=== PATIENT | female | born 1995 | race Caucasian/White ===

== ENCOUNTER → 2016-09-12 | Outpatient (CLI) | payer OTHER ==
[~2016-09-12] VITALS: Ht 160 cm; Wt 115.2 kg
[~2016-09-12] MED LIST: NS (IVPB) 50 ML ONE; NS IV 1000 ML 2,000 ML ONE; cefTRIAXone 1 GM (ROCEPHIN) VIAL ONE; cefTRIAXone 1 GM/NS 50 ML IVPB IV ONE
[2016-09-12 10:51] LABS: MEAN PLATELET VOLUME 9.6 FL (7.4-10.4); RED BLOOD COUNT 4.95 10^6/uL (4.35-5.85); WHITE BLOOD COUNT 6.7 10^3/uL (4.3-11.0)
[2016-09-12 11:10] VITALS: BP 142/85
[2016-09-12] MEDS: NS IV 1000 ML 1,000 ML IV SCH ×2 (11:10→12:10)
[2016-09-12 11:12] LABS: ALANINE AMINOTRANSFERASE 139 U/L (0-55); ALBUMIN 3.9 GM/DL (3.2-4.5); ANION GAP 10 MMOL/L (5-14); ASPARTATE AMINO TRANSFERASE 96 U/L (5-34); BILIRUBIN,TOTAL 1.1 MG/DL (0.1-1.0); BLOOD UREA NITROGEN 7 MG/DL (7-18); BUN/CREATININE RATIO 9; CALCIUM 8.9 MG/DL (8.5-10.1); CARBON DIOXIDE 21 MMOL/L (21-32); CHLORIDE 106 MMOL/L (98-107); GFR ESTIMATED > 60; GLUCOSE 110 MG/DL (70-105); HEMOLYSIS 4 (-100-29); ICTERUS 0.9 (-100-1.9); LIPEMIA -3 (-100-49); POTASSIUM 3.9 MMOL/L (3.6-5.0); SODIUM 137 MMOL/L (135-145)
--- NOTE | 2016-09-12 11:22 | Diagnostic Imaging Report ---
PA and lateral views of the chest Indication: Cough and fever Findings: The lungs are clear. The heart size is normal. There is no effusion or pneumothorax The mediastinum and ashok appear unremarkable. Impression: Unremarkable study. Dictated by: Dictated on workstation # [id number]
[2016-09-12 13:15] VITALS: BP 142/85
[2016-09-12 15:23] LABS: BASOPHILS # (AUTO) 0.2 10^3/uL (0.0-0.1); BASOPHILS % (AUTO) 3 % (0-10); EOSINOPHILS # (AUTO) 0.1 10^3/uL (0.0-0.3); EOSINOPHILS % (AUTO) 1 % (0-10); LYMPHOCYTES # (AUTO) 2.5 X 10^3 (1.0-4.0); LYMPHOCYTES % (AUTO) 36 % (12-44); MEAN CORPUSCULAR HEMOGLOBIN 31 PG (25-34); MEAN CORPUSCULAR HGB CONC 35 G/DL (32-36); MEAN CORPUSCULAR VOLUME 87 FL (80-99); MEAN PLATELET VOLUME 10.3 FL (7.4-10.4); MONOCYTES % (AUTO) 14 % (0-12); NEUTROPHILS # (AUTO) 3.1 X 10^3 (1.8-7.8); NEUTROPHILS % (AUTO) 46 % (42-75); PLATELET COUNT 203 10^3/uL (130-400); RED BLOOD COUNT 4.86 10^6/uL (4.35-5.85); RED CELL DISTRIBUTION WIDTH 13.1 % (10.0-14.5); WHITE BLOOD COUNT 6.9 10^3/uL (4.3-11.0)
[2016-09-12 15:39] LABS: BAND NEUTROPHILS 11 %; BASOPHILS % (MANUAL) 2 %; EOSINOPHILS % (MANUAL) 3 %; LYMPHOCYTES % (MANUAL) 26 %; NEUTROPHILS % (MANUAL) 41 %; REACTIVE LYMPHOCYTES 12 %
== END ==
LOC: SDC 10:14
PROVIDERS: ATTEND Nurse Practitioner Family
DX: E86.0 Dehydration (principal); R05 Cough; R00.0 Tachycardia, unspecified; R74.8 Abnormal levels of other serum enzymes
CPT/HCPCS: 36415; 71020; 80053; 85007; 85027; 86308; 96360; 96365

== ENCOUNTER 2016-09-15 18:28 | Inpatient (IN) | payer OTHER ==
[~2016-09-15] VITALS: Ht 160 cm; Wt 104.3 kg
--- OUTSIDE RECORDS SUMMARY | 2016-09-15 18:32 | XMS REPORT | Continuity of Care Document ---
Author Author [facility] Organization [facility] Address Unknown Phone Unavailable Allergies Medications Problems Procedures Results Test Result Range Automated blood complete blood count (hemogram) panel - 09/12/16 10:35 Blood leukocytes automated count (number/volume) 6.7 10*3/ uL 4.3-11.0 Blood erythrocytes automated count (number/volume) 4.95 10*6 /uL 4.35-5.85 Venous blood hemoglobin measurement (mass/volume) 15.1 g/dL 11.5-16.0 Blood hematocrit (volume fraction) 43 % 35-52 Automated erythrocyte mean corpuscular volume 86 [foz_us] 80-99 Automated erythrocyte mean corpuscular hemoglobin (mass per erythrocyte) 31 pg 25-34 Automated erythrocyte mean corpuscular hemoglobin concentration measurement ( mass/volume) 35 g/dL 32-36 Automated erythrocyte distribution width ratio 13.0 % 10.0-14.5 Automated blood platelet count (count/volume) 200 10*3/uL 130-400 Automated blood platelet mean volume measurement 9.6 [foz_us ] 7.4-10.4 Comprehensive metabolic panel - 09/12/16 10:35 Serum or plasma sodium measurement (moles/volume) 137 mmol/ L 135-145 Serum or plasma potassium measurement (moles/volume) 3.9 mmol/L 3.6-5.0 Serum or plasma chloride measurement (moles/volume) 106 mmol /L 98-107 Carbon dioxide 21 mmol/L 21-32 Serum or plasma anion gap determination (moles/volume) 10 mmol/L 5-14 Serum or plasma urea nitrogen measurement (mass/volume) 7 mg /dL 7-18 Serum or plasma creatinine measurement (mass/volume) 0.80 mg /dL 0.60-1.30 Serum or plasma urea nitrogen/creatinine mass ratio 9 NRG Serum or plasma creatinine measurement with calculation of estimated glomerular filtration rate > NRG Serum or plasma glucose measurement (mass/volume) 110 mg/dL 70-105 Serum or plasma calcium measurement (mass/volume) 8.9 mg/dL 8.5-10.1 Serum or plasma total bilirubin measurement (mass/volume) 1.1 mg/dL 0.1-1.0 Serum or plasma alkaline phosphatase measurement (enzymatic activity/volume) 145 U/L 40-136 Serum or plasma aspartate aminotransferase measurement (enzymatic activity/ volume) 96 U/L 5-34 Serum or plasma alanine aminotransferase measurement (enzymatic activity/volume ) 139 U/L 0-55 Serum or plasma protein measurement (mass/volume) 7.0 g/dL 6.4-8.2 Serum or plasma albumin measurement (mass/volume) 3.9 g/dL 3.2-4.5 Complete blood count (CBC) with automated white blood cell (WBC) differential - 09/12/16 10:35 Blood leukocytes automated count (number/volume) 6.9 10*3/ uL 4.3-11.0 Blood erythrocytes automated count (number/volume) 4.86 10*6 /uL 4.35-5.85 Venous blood hemoglobin measurement (mass/volume) 14.9 g/dL 11.5-16.0 Blood hematocrit (volume fraction) 42 % 35-52 Automated erythrocyte mean corpuscular volume 87 [foz_us] 80-99 Automated erythrocyte mean corpuscular hemoglobin (mass per erythrocyte) 31 pg 25-34 Automated erythrocyte mean corpuscular hemoglobin concentration measurement ( mass/volume) 35 g/dL 32-36 Automated erythrocyte distribution width ratio 13.1 % 10.0-14.5 Automated blood platelet count (count/volume) 203 10*3/uL 130-400 Automated blood platelet mean volume measurement 10.3 [foz_ us] 7.4-10.4 Automated blood neutrophils/100 leukocytes 46 % 42-75 Automated blood lymphocytes/100 leukocytes 36 % 12-44 Blood monocytes/100 leukocytes 14 % 0-12 Automated blood eosinophils/100 leukocytes 1 % 0-10 Automated blood basophils/100 leukocytes 3 % 0-10 Blood neutrophils automated count (number/volume) 3.1 10*3 1.8-7.8 Blood lymphocytes automated count (number/volume) 2.5 10*3 1.0-4.0 Blood monocytes automated count (number/volume) 1.0 10*3 0.0-1.0 Automated eosinophil count 0.1 10*3/uL 0.0-0.3 Automated blood basophil count (count/volume) 0.2 10*3/uL 0.0-0.1 Serum heterophile antibody titer - 09/12/16 10:35 Serum heterophile antibody titer NEGATIVE NEGATIVE Blood manual differential performed detection - 09/12/16 10:35 Blood monocytes/100 leukocytes 5 % NRG Manual blood segmented neutrophils/100 leukocytes 41 % NRG Blood band neutrophils/100 leukocytes 11 % NRG Manual blood lymphocytes/100 leukocytes 26 % NRG Manual eosinophils/100 leukocytes in nose 3 % NRG Manual blood basophils/100 leukocytes 2 % NRG Blood lymphocytes variant/100 leukocytes 12 % NRG Blood erythrocyte morphology finding identification NORMAL NRG Encounters ACCT No. Visit Date/Time Discharge Status Pt. Type Provider Facility Loc./Unit Complaint [id number] 11/22/2012 08:22:00 2012 23:59:59 CLS Outpatient [id number] 10/23/2012 11:56:00 2012 23:59:59 CLS Outpatient [id number] 09/12/2016 10:51:00 Document Registration
--- NOTE | 2016-09-15 18:50 | ED General ---
General Stated Complaint: YELLOWED EYES/HIGH HEART RATE/BACK PAIN Source of Information: Patient Exam Limitations: No Limitations History of Present Illness Time Seen by Provider: 18:47 Initial Comments To ER with reports of yellowish eyes, tachycardia, mid back pain. She's also had nausea and vomiting for the past few days. This began about a week ago with diffuse body aches, generally feeling poorly, nausea. No fevers or chills. No specific pain She saw Dr. Sahu[facility] who referred her to the hospital for outpatient labs and IV fluids. She was told that her liver enzymes were slightly elevated. She went home and felt worse. They started her on Rocephin injection in the clinic and doxycycline orally. However, over the past week she's been to the clinic several times to receive repeat injections of Rocephin because she's been too nauseated to take the doxycycline. Timing/Duration: 1-2 Days Severity: Moderate Associated Systoms: Fever/Chills, Malaise, Nausea/Vomiting Allergies and Home Medications Allergies Coded Allergies: No Known Drug Allergies (Unverified , 09/12/16) Home Medications No Active Prescriptions or Reported Meds Constitutional: see HPI, chills, No fever, malaise, weakness EENTM: see HPI Respiratory: no symptoms reported Cardiovascular: no symptoms reported Gastrointestinal: No abdominal pain, jaundice, nausea, vomiting Genitourinary: no symptoms reported Musculoskeletal: no symptoms reported Skin: no symptoms reported Psychiatric/Neurological: No Symptoms Reported Hematologic/Lymphatic: No Symptoms Reported Immunological/Allergic: no symptoms reported Past Lwxmbay-Kiredc-Seupqc Hx Patient Social History Recent Foreign Travel: No Contact w/Someone Who Travel: No Recent Hopitalizations: No Immunizations Up To Date PED Vaccines UTD: Yes Seasonal Allergies Seasonal Allergies: No Surgeries HX Surgeries: Yes (HERNIA SX WHEN A BABY) Surgeries: Adenoidectomy, Tonsillectomy Respiratory Hx Respiratory Disorders: No Cardiovascular Hx Cardiac Disorders: No Neurological Hx Neurological Disorders: No Reproductive System Hx Reproductive Disorders: No Genitourinary Hx Genitourinary Disorders: No Gastrointestinal Hx Gastrointestinal Disorders: No Musculoskeletal Hx Musculoskeletal Disorders: No Endocrine Hx Endocrine Disorders: No HEENT HX ENT Disorders: Yes (GLASSES) Loss of Vision: Bilateral Hearing Impairment: Denies Cancer Hx Cancer: No Psychosocial Hx Psychiatric Problems: No Integumentary HX Skin/Integumentary Disorder: No Blood Transfusions Hx Blood Disorders: No Physical Exam Vital Signs Vital Sign - Last 12Hours 09/15/16 09/15/16 18:35 21:10 Temp 100.7 Pulse 107 Resp 18 B/P (MAP) 121/81 Pulse Ox 96 O2 Delivery Room Air Capillary Refill : General Appearance: No Apparent Distress, WD/WN, Obese Eyes: Bilateral Eye EOMI, Bilateral Eye Normal Inspection, Bilateral Eye PERRL HEENT: PERRL/EOMI, TMs Normal, Scleral Icterus (L), Scleral Icterus (R) Neck: Full Range of Motion, Normal Inspection Respiratory: Normal Breath Sounds, No Accessory Muscle Use, No Respiratory Distress Cardiovascular: Regular Rate, Rhythm, Normal Peripheral Pulses Gastrointestinal: Normal Bowel Sounds, Non Tender, Soft Extremity: Normal Capillary Refill, Normal Inspection Neurologic/Psychiatric: Alert, Oriented x3, No Motor/Sensory Deficits Skin: Normal Color, Warm/Dry, No Jaundice Focused Exam Lactic Acid Level Progress/Results/Core Measures Results/Orders Lab Results Laboratory Tests Test 09/15/16 18:45 09/15/16 19:33 09/15/16 19:40 09/15/16 20:59 Range/Units White Blood Count 15.1 H 4.3-11.0 10^3/uL Red Blood Count 4.85 4.35-5.85 10^6/uL Hemoglobin 14.7 11.5-16.0 G/DL Hematocrit 42 35-52 % Mean Corpuscular Volume 87 80-99 FL Mean Corpuscular Hemoglobin 30 25-34 PG Mean Corpuscular Hemoglobin Concent 35 32-36 G/DL Red Cell Distribution Width 13.4 10.0-14.5 % Platelet Count 185 130-400 10^3/uL Mean Platelet Volume 10.2 7.4-10.4 FL Neutrophils (%) (Auto) 6 L 42-75 % Lymphocytes (%) (Auto) 74 H 12-44 % Monocytes (%) (Auto) 11 0-12 % Eosinophils (%) (Auto) 1 0-10 % Basophils (%) (Auto) 9 0-10 % Neutrophils # (Auto) 0.9 L 1.8-7.8 X 10^3 Lymphocytes # (Auto) 11.1 H 1.0-4.0 X 10^3 Monocytes # (Auto) 1.6 H 0.0-1.0 X 10^3 Eosinophils # (Auto) 0.1 0.0-0.3 10^3/uL Basophils # (Auto) 1.3 H 0.0-0.1 10^3/uL Neutrophils % (Manual) 9 % Lymphocytes % (Manual) 90 % Monocytes % (Manual) 0 % Eosinophils % (Manual) 1 % Basophils % (Manual) 0 % Band Neutrophils 0 % Blood Morphology Comment NORMAL Urine Color CORBY H Urine Clarity CLEAR Urine pH 6.5 5-9 Urine Specific [place] 1.015 L 1.016-1.022 Urine Protein 2+ H NEGATIVE Urine Glucose (UA) NEGATIVE NEGATIVE Urine Ketones NEGATIVE NEGATIVE Urine Nitrite NEGATIVE NEGATIVE Urine Bilirubin 3+ H NEGATIVE Urine Urobilinogen 4 H NORMAL MG/DL Urine Leukocyte Esterase 3+ H NEGATIVE Urine RBC (Auto) 5+ H NEGATIVE Urine RBC 0-2 /HPF Urine WBC 10-25 H /HPF Urine Squamous Epithelial Cells 25-50 H /HPF Urine Crystals NONE /LPF Urine Bacteria FEW H /HPF Urine Casts NONE /LPF Urine Mucus NEGATIVE /LPF Urine Culture Indicated YES Sodium Level 134 L 135-145 MMOL/L Potassium Level 3.7 3.6-5.0 MMOL/L Chloride Level 101 98-107 MMOL/L Carbon Dioxide Level 21 21-32 MMOL/L Anion Gap 12 5-14 MMOL/L Blood Urea Nitrogen 8 7-18 MG/DL Creatinine 0.75 0.60-1.30 MG/DL Estimat Glomerular Filtration Rate > 60 BUN/Creatinine Ratio 11 Glucose Level 97 70-105 MG/DL Calcium Level 9.6 8.5-10.1 MG/DL Total Bilirubin 5.8 H 0.1-1.0 MG/DL Aspartate Amino Transf (AST/SGOT) 353 H 5-34 U/L Alanine Aminotransferase (ALT/SGPT) 449 H 0-55 U/L Alkaline Phosphatase 363 H 40-136 U/L Total Protein 7.7 6.4-8.2 GM/DL Albumin 3.9 3.2-4.5 GM/DL Lipase 18 8-78 U/L Monoscreen NEGATIVE NEGATIVE Lactic Acid Level 0.99 0.50-2.00 MMOL/L Direct Bilirubin 4.5 H 0.0-0.3 MG/DL Prothrombin Time 13.1 12.2-14.7 SEC INR Comment 1.0 0.8-1.4 Activated Partial Thromboplast Time 32 24-35 SEC Test 09/16/16 05:20 09/17/16 04:31 Range/Units Sodium Level 138 140 135-145 MMOL/L Potassium Level 3.5 L 3.6 3.6-5.0 MMOL/L Chloride Level 107 111 H 98-107 MMOL/L Carbon Dioxide Level 20 L 21 21-32 MMOL/L Anion Gap 11 8 5-14 MMOL/L Blood Urea Nitrogen 5 L 4 L 7-18 MG/DL Creatinine 0.74 0.65 0.60-1.30 MG/DL Estimat Glomerular Filtration Rate > 60 > 60 BUN/Creatinine Ratio 7 6 Glucose Level 101 108 H 70-105 MG/DL Calcium Level 8.3 L 8.3 L 8.5-10.1 MG/DL Total Bilirubin 4.8 H 4.3 H 0.1-1.0 MG/DL Aspartate Amino Transf (AST/SGOT) 270 H 346 H 5-34 U/L Alanine Aminotransferase (ALT/SGPT) 351 H 368 H 0-55 U/L Alkaline Phosphatase 328 H 351 H 40-136 U/L Total Protein 6.0 L 5.8 L 6.4-8.2 GM/DL Albumin 3.1 L 2.8 L 3.2-4.5 GM/DL White Blood Count 9.7 4.3-11.0 10^3/uL Red Blood Count 4.00 L 4.35-5.85 10^6/uL Hemoglobin 12.2 11.5-16.0 G/DL Hematocrit 36 35-52 % Mean Corpuscular Volume 90 80-99 FL Mean Corpuscular Hemoglobin 31 25-34 PG Mean Corpuscular Hemoglobin Concent 34 32-36 G/DL Red Cell Distribution Width 14.2 10.0-14.5 % Platelet Count 140 130-400 10^3/uL Mean Platelet Volume 9.8 7.4-10.4 FL Neutrophils (%) (Auto) 7 L 42-75 % Lymphocytes (%) (Auto) 73 H 12-44 % Monocytes (%) (Auto) 14 H 0-12 % Eosinophils (%) (Auto) 1 0-10 % Basophils (%) (Auto) 5 0-10 % Neutrophils # (Auto) 0.7 L 1.8-7.8 X 10^3 Lymphocytes # (Auto) 7.1 H 1.0-4.0 X 10^3 Monocytes # (Auto) 1.4 H 0.0-1.0 X 10^3 Eosinophils # (Auto) 0.1 0.0-0.3 10^3/uL Basophils # (Auto) 0.5 H 0.0-0.1 10^3/uL Magnesium Level 2.0 1.8-2.4 MG/DL Micro Results Microbiology 09/15/16 Blood Culture - Preliminary, Resulted No growth 09/15/16 Blood Culture - Preliminary, Resulted No growth 09/15/16 Urine Culture - Final, Complete Enterococcus Faecalis Staph, Coag Neg (Remote Sensing Specialist) My Orders Orders - TAJ ZAMORA APRN Cbc With Automated Diff (09/15/16 18:46) Comprehensive Metabolic Panel (09/15/16 18:46) Lipase (09/15/16 18:46) Ua Culture If Indicated (09/15/16 18:46) Saline Lock/Iv-Start (09/15/16 18:46) Urine Bedside (09/15/16 18:46) Us Gallbladder [id number] (09/15/16 18:46) Ondansetron Injection (Zofran Injectio (09/15/16 19:00) Monotest (09/15/16 18:46) Ns Iv 1000 Ml (Sodium Chloride 0.9%) (09/15/16 19:00) Manual Differential (09/15/16 18:45) Urine Culture (09/15/16 18:45) Blood Culture (09/15/16 19:23) Lactic Acid Analyzer (09/15/16 19:23) Piperacillin Sodium/Tazobactam (Zosyn Vi (09/15/16 19:30) Ct Abdomen/Pelvis W (09/15/16 19:53) Tick Panel With Lyme Eia (09/15/16 20:00) Hepatitis Panel Acute (09/15/16 20:00) Iohexol Injection (Omnipaque 350 Mg/Ml 1 (09/15/16 20:15) Ns (Ivpb) (Sodium Chloride 0.9% Ivpb Bag (09/15/16 20:15) Bilirubin,Direct (09/15/16 20:04) Cmv Igg & Igm Ab (09/15/16 20:40) Ibuprofen Tablet (Motrin Tablet) (09/15/16 20:45) Protime With Inr (09/15/16 20:47) Partial Thromboplastin Time (09/15/16 20:47) Gamma Glutamyl Transpeptidase (09/15/16 20:48) Hiv 1&2 Antibody (09/15/16 20:51) Medications Given in ED Vital Signs/I&O Vital Sign - Last 12Hours 09/16/16 09/17/16 23:40 08:15 Temp 98.8 99.0 Pulse 93 92 Resp 20 18 B/P (MAP) 117/68 117/65 Pulse Ox 94 95 O2 Delivery Room Air Room Air Diagnostic Imaging Diagonstic Imaging: Xray Comments NAME: ASHER NICE [facility] REC#: [id number] PT STATUS: REG ER : 1995 PHYSICIAN: TAJ ZAMORA APRN ADMIT DATE: 09/15/16/ER Draft Date of Exam:09/15/16 CT ABDOMEN/PELVIS W PROCEDURE: CT abdomen and pelvis with contrast. TECHNIQUE: Multiple contiguous axial images were obtained through the abdomen and pelvis after administration of intravenous contrast. INDICATION: Diffuse body aches and stomach pain. Nausea and vomiting. COMPARISON: Gallbladder ultrasound performed earlier same day. FINDINGS: Lower chest: The lung bases are clear. No pericardial or pleural effusion. Peritoneum: No free intraperitoneal air or fluid. Liver and biliary system: Liver is enlarged measuring 22 cm in length and has diffuse hypoattenuation indicative of hepatic steatosis. Gallbladder is partially distended without radiopaque gallstones. No biliary duct dilatation. Spleen and Pancreas: Spleen is enlarged measuring 14.5 cm. The pancreas enhances normally without mass lesion or peripancreatic inflammatory changes. Adrenals: Normal. tract: Patient has a duplicated right-sided collecting system. Mild hydroureter of the upper pole moiety secondary to a partially obstructing 3 mm calculus in the mid right ureter. The lower pole moiety on the right is widely patent and normal in caliber. No left renal or ureteral calculi. Urinary bladder is distended without wall thickening. Uterus and ovaries are physiologic in appearance for patient's age. There is a dominant right ovarian follicle measuring 4.0 x 2.9 cm. GI tract: Stomach is partially filled with fluid, and there is no wall thickening. No bowel obstruction. No pericolonic inflammatory changes. Normal appendix. Vasculature and Lymph nodes: Normal caliber aorta. No abdominal or pelvic lymphadenopathy. Musculoskeletal: No concerning osseous lesion. IMPRESSION: 1. 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 The right upper pole collecting system moiety is partially obstructed by a 3 mm calculus in the mid to distal ureter. The lower pole moiety is widely patent. No hydronephrosis. 2. Hepatomegaly with mild diffuse hepatic steatosis. 3. Mild splenomegaly. 4. No intra-abdominal lymphadenopathy. Dictated on workstation # [id number] Dict: 09/15/162020 Trans: 09/15/162030 [id number] Interpreted by: NA VO MD Electronically signed by: NAME: ASHER NICE [facility] REC#: [id number] PT STATUS: REG ER : 1995 PHYSICIAN: TAJ ZAMORA APRN ADMIT DATE: 09/15/16/ER Draft Date of Exam:09/15/16 US GALLBLADDER [id number] PROCEDURE: US gallbladder. TECHNIQUE: Multiple real-time grayscale images were obtained over the right upper quadrant in various projections. INDICATION: Right upper quadrant pain. COMPARISON: None available. FINDINGS: The liver enlarged with mild increased echogenicity and poor through sound transmission indicative of hepatic steatosis. There is no focal hepatic mass. The main portal vein is patent with antegrade flow. The gallbladder is distended without gallstones, wall thickening, or pericholecystic fluid. The common bile duct is obscured by overlying bowel gas and not visualized. Pancreas is obscured by overlying bowel gas and not visualized. The right kidney is normal in size. No hydronephrosis, shadowing calculi, or suspicious mass lesion. IMPRESSION: 1. Hepatomegaly with mild diffuse hepatic steatosis. 2. Normal gallbladder. Dictated on workstation # [id number] Dict: 09/15/162000 Trans: 09/15/162003 PJE [id number] Interpreted by: NA VO MD Electronically signed by: Departure Communication Time/Spoke to Admitting Phy: 20:37 Time/Spoke to Consulting Physi: 20:36 Communication/Consulting Discussed with Dr. Lea. The normal gallbladder ultrasound and inability to visualize common bile duct on ultrasound suggests a nonsurgical process. She also does not have pain but rather has general malaise and more systemic symptoms. We'll admit to medicine, consult Dr. Lea. Progress Notes Since the patient has received at least 3 injections of Rocephin and still has evidence on urinalysis of urinary tract infection, we will switch to Bactrim pending culture and sensitivity. Impression Impression: Primary Impression: Acute hepatitis Additional Impression: Urinary tract infection Disposition: ADMITTED INPATIENT Condition: Stable Decision to Admit Reason: Admit from ER (General) Departure-Patient Inst. Referrals: GIANFRANCO SAHU MD (PCP/Family) Primary Care Physician Scripts No Active Prescriptions or Reported Meds TAJ ZAMORA APRN Sep 15, 2016 18:50
[2016-09-15 18:52] LABS: EOSINOPHILS # (AUTO) 0.1 10^3/uL (0.0-0.3); EOSINOPHILS % (AUTO) 1 % (0-10); LYMPHOCYTES # (AUTO) 11.1 X 10^3 (1.0-4.0); LYMPHOCYTES % (AUTO) 74 % (12-44); MEAN CORPUSCULAR HEMOGLOBIN 30 PG (25-34); MEAN CORPUSCULAR HGB CONC 35 G/DL (32-36); MEAN CORPUSCULAR VOLUME 87 FL (80-99); MEAN PLATELET VOLUME 10.2 FL (7.4-10.4); MONOCYTES # (AUTO) 1.6 X 10^3 (0.0-1.0); MONOCYTES % (AUTO) 11 % (0-12); PLATELET COUNT 185 10^3/uL (130-400); RED BLOOD COUNT 4.85 10^6/uL (4.35-5.85); RED CELL DISTRIBUTION WIDTH 13.4 % (10.0-14.5); WHITE BLOOD COUNT 15.1 10^3/uL (4.3-11.0)
[2016-09-15 18:53] LABS: KETONES,URINE NEGATIVE (NEGATIVE); LEUKOCYTE ESTERASE ,URINE 3+ (NEGATIVE); NITRITE,URINE NEGATIVE (NEGATIVE); PH,URINE 6.5 (5-9); PROTEIN,URINE 2+ (NEGATIVE); UROBILINOGEN,URINE 4 MG/DL (NORMAL)
[2016-09-15 18:59] LABS: BASOPHILS # (AUTO) 1.3 10^3/uL (0.0-0.1); BASOPHILS % (AUTO) 9 % (0-10); NEUTROPHILS # (AUTO) 0.9 X 10^3 (1.8-7.8); NEUTROPHILS % (AUTO) 6 % (42-75)
[2016-09-15] MEDS ORDERED: ONDANSETRON 4 MG/2 ML (SDV) Z0FRAN IVP ONE (19:00)
[2016-09-15] MEDS ORDERED: NS IV 1000 ML 1,000 ML IV SCH (19:00)
[2016-09-15 19:01] LABS: BILIRUBIN,URINE 3+ (NEGATIVE)
[2016-09-15 19:08] LABS: ALANINE AMINOTRANSFERASE 449 U/L (0-55); ALBUMIN 3.9 GM/DL (3.2-4.5); ANION GAP 12 MMOL/L (5-14); ASPARTATE AMINO TRANSFERASE 353 U/L (5-34); BILIRUBIN,TOTAL 5.8 MG/DL (0.1-1.0); BLOOD UREA NITROGEN 8 MG/DL (7-18); BUN/CREATININE RATIO 11; CALCIUM 9.6 MG/DL (8.5-10.1); CARBON DIOXIDE 21 MMOL/L (21-32); CHLORIDE 101 MMOL/L (98-107); CREATININE SERUM 0.75 MG/DL (0.60-1.30); GFR ESTIMATED > 60; GLUCOSE 97 MG/DL (70-105); LIPASE 18 U/L (8-78); POTASSIUM 3.7 MMOL/L (3.6-5.0); SODIUM 134 MMOL/L (135-145); TOTAL PROTEIN 7.7 GM/DL (6.4-8.2)
[2016-09-15 19:12] LABS: SQUAMOUS EPITHELIAL CELL,UR 25-50 /HPF
[2016-09-15 19:16] LABS: BAND NEUTROPHILS 0 %; BASOPHILS % (MANUAL) 0 %; EOSINOPHILS % (MANUAL) 1 %; LYMPHOCYTES % (MANUAL) 90 %; NEUTROPHILS % (MANUAL) 9 %
[2016-09-15] MEDS ORDERED: PIPERACILLIN SODIUM/TAZOBACTAM 4.5 GM in NS (IVPB) 100 ML IV ONE (19:30)
--- NOTE | 2016-09-15 20:04 | Diagnostic Imaging Report ---
PROCEDURE: US gallbladder. TECHNIQUE: Multiple real-time grayscale images were obtained over the right upper quadrant in various projections. INDICATION: Right upper quadrant pain. COMPARISON: None available. FINDINGS: The liver enlarged with mild increased echogenicity and poor through sound transmission indicative of hepatic steatosis. There is no focal hepatic mass. The main portal vein is patent with antegrade flow. The gallbladder is distended without gallstones, wall thickening, or pericholecystic fluid. The common bile duct is obscured by overlying bowel gas and not visualized. Pancreas is obscured by overlying bowel gas and not visualized. The right kidney is normal in size. No hydronephrosis, shadowing calculi, or suspicious mass lesion. IMPRESSION: 1. Hepatomegaly with mild diffuse hepatic steatosis. 2. Normal gallbladder. Dictated by: Dictated on workstation # [id number]
[2016-09-15] MEDS ORDERED: IOHEXOL 350 MG/ML 100 ML (OMNIPAQUE 350) VIAL IV ONE (20:15)
[2016-09-15] MEDS ORDERED: NS 100 ML (IVPB) BAG IV ONE (20:15)
--- NOTE | 2016-09-15 20:31 | Diagnostic Imaging Report ---
PROCEDURE: CT abdomen and pelvis with contrast. TECHNIQUE: Multiple contiguous axial images were obtained through the abdomen and pelvis after administration of intravenous contrast. INDICATION: Diffuse body aches and stomach pain. Nausea and vomiting. COMPARISON: Gallbladder ultrasound performed earlier same day. FINDINGS: Lower chest: The lung bases are clear. No pericardial or pleural effusion. Peritoneum: No free intraperitoneal air or fluid. Liver and biliary system: Liver is enlarged measuring 22 cm in length and has diffuse hypoattenuation indicative of hepatic steatosis. Gallbladder is partially distended without radiopaque gallstones. No biliary duct dilatation. Spleen and Pancreas: Spleen is enlarged measuring 14.5 cm. The pancreas enhances normally without mass lesion or peripancreatic inflammatory changes. Adrenals: Normal. tract: Patient has a duplicated right-sided collecting system. Mild hydroureter of the upper pole moiety secondary to a partially obstructing 3 mm calculus in the mid right ureter. The lower pole moiety on the right is widely patent and normal in caliber. No left renal or ureteral calculi. Urinary bladder is distended without wall thickening. Uterus and ovaries are physiologic in appearance for patient's age. There is a dominant right ovarian follicle measuring 4.0 x 2.9 cm. GI tract: Stomach is partially filled with fluid, and there is no wall thickening. No bowel obstruction. No pericolonic inflammatory changes. Normal appendix. Vasculature and Lymph nodes: Normal caliber aorta. No abdominal or pelvic lymphadenopathy. Musculoskeletal: No concerning osseous lesion. IMPRESSION: 1. 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 The right upper pole collecting system moiety is partially obstructed by a 3 mm calculus in the mid to distal ureter. The lower pole moiety is widely patent. No hydronephrosis. 2. Hepatomegaly with mild diffuse hepatic steatosis. 3. Mild splenomegaly. 4. No intra-abdominal lymphadenopathy. Dictated by: Dictated on workstation # [id number]
[2016-09-15] MEDS ORDERED: IBUPROFEN 800 MG (MOTRIN) TAB PO ONE (20:45)
--- OUTSIDE RECORDS SUMMARY | 2016-09-15 20:58 | XMS REPORT | Continuity of Care Document ---
Author Author [facility] Organization [facility] Address Unknown Phone Unavailable Allergies Active Description Code Type Severity Reaction Onset Reported/Identified Relationship to Patient Clinical Status Yes No Known Drug Allergies [id number] Drug Allergy Unknown N/ A 09/12/2016 Medications Problems Date Dx Coded Attending Type Code Diagnosis Diagnosed By 09/12/2016 LYNSEY GARCIA, HORTENCIA Ferreira Ot 719.43 JOINT PAIN-FOREARM Procedures Results Test Result Range Automated blood [...] Blood erythrocyte morphology finding identification NORMAL NRG Complete blood count (CBC) with automated white blood cell (WBC) differential - 09/15/16 18:45 Blood leukocytes automated count (number/volume) 15.1 10*3/ uL 4.3-11.0 Blood erythrocytes automated count (number/volume) 4.85 10*6 /uL 4.35-5.85 Venous blood hemoglobin measurement (mass/volume) 14.7 g/dL 11.5-16.0 Blood hematocrit (volume fraction) 42 % 35-52 Automated erythrocyte mean corpuscular volume 87 [foz_us] 80-99 Automated erythrocyte mean corpuscular hemoglobin (mass per erythrocyte) 30 pg 25-34 Automated erythrocyte mean corpuscular hemoglobin concentration measurement ( mass/volume) 35 g/dL 32-36 Automated erythrocyte distribution width ratio 13.4 % 10.0-14.5 Automated blood platelet count (count/volume) 185 10*3/uL 130-400 Automated blood platelet mean volume measurement 10.2 [foz_ us] 7.4-10.4 Automated blood neutrophils/100 leukocytes 6 % 42-75 Automated blood lymphocytes/100 leukocytes 74 % 12-44 Blood monocytes/100 leukocytes 11 % 0-12 Automated blood eosinophils/100 leukocytes 1 % 0-10 Automated blood basophils/100 leukocytes 9 % 0-10 Blood neutrophils automated count (number/volume) 0.9 10*3 1.8-7.8 Blood lymphocytes automated count (number/volume) 11.1 10*3 1.0-4.0 Blood monocytes automated count (number/volume) 1.6 10*3 0.0-1.0 Automated eosinophil count 0.1 10*3/uL 0.0-0.3 Automated blood basophil count (count/volume) 1.3 10*3/uL 0.0-0.1 Comprehensive metabolic panel - 09/15/16 18:45 Serum or plasma sodium measurement (moles/volume) 134 mmol/ L 135-145 Serum or plasma potassium measurement (moles/volume) 3.7 mmol/L 3.6-5.0 Serum or plasma chloride measurement (moles/volume) 101 mmol /L 98-107 Carbon dioxide 21 mmol/L 21-32 Serum or plasma anion gap determination (moles/volume) 12 mmol/L 5-14 Serum or plasma urea nitrogen measurement (mass/volume) 8 mg /dL 7-18 Serum or plasma creatinine measurement (mass/volume) 0.75 mg /dL 0.60-1.30 Serum or plasma urea nitrogen/creatinine mass ratio 11 NRG Serum or plasma creatinine measurement with calculation of estimated glomerular filtration rate > NRG Serum or plasma glucose measurement (mass/volume) 97 mg/dL 70-105 Serum or plasma calcium measurement (mass/volume) 9.6 mg/dL 8.5-10.1 Serum or plasma total bilirubin measurement (mass/volume) 5.8 mg/dL 0.1-1.0 Serum or plasma alkaline phosphatase measurement (enzymatic activity/volume) 363 U/L 40-136 Serum or plasma aspartate aminotransferase measurement (enzymatic activity/ volume) 353 U/L 5-34 Serum or plasma alanine aminotransferase measurement (enzymatic activity/volume ) 449 U/L 0-55 Serum or plasma protein measurement (mass/volume) 7.7 g/dL 6.4-8.2 Serum or plasma albumin measurement (mass/volume) 3.9 g/dL 3.2-4.5 Lipase - 09/15/16 18:45 Lipase 18 U/L 8-78 Serum heterophile antibody titer - 09/15/16 18:45 Serum heterophile antibody titer NEGATIVE NEGATIVE Complete urinalysis with reflex to culture - 09/15/16 18:45 Urine color determination CORBY NRG Urine clarity determination CLEAR NRG Urine pH measurement by test strip 6.5 5 -9 Specific gravity of urine by test strip 1.015 1.016-1.022 Urine protein assay by test strip, semi-quantitative 2+ NEGATIVE Urine glucose detection by automated test strip NEGATIVE NEGATIVE Erythrocytes detection in urine sediment by light microscopy 5+ NEGATIVE Urine ketones detection by automated test strip NEGATIVE NEGATIVE Urine nitrite detection by test strip NEGATIVE NEGATIVE Urine total bilirubin detection by test strip 3+ NEGATIVE Urine urobilinogen measurement by automated test strip (mass/volume) 4 mg/dL NORMAL Urine leukocyte esterase detection by dipstick 3+ NEGATIVE Automated urine sediment erythrocyte count by microscopy (number/high power field) [HPF] NRG Automated urine sediment leukocyte count by microscopy (number/high power field ) [HPF] NRG Bacteria detection in urine sediment by light microscopy FEW NRG Squamous epithelial cells detection in urine sediment by light microscopy 25-50 NRG Crystals detection in urine sediment by light microscopy NONE NRG Casts detection in urine sediment by light microscopy NONE NRG Mucus detection in urine sediment by light microscopy NEGATIVE NRG Complete urinalysis with reflex to culture YES NRG Blood manual differential performed detection - 09/15/16 18:45 Blood monocytes/100 leukocytes 0 % NRG Manual blood segmented neutrophils/100 leukocytes 9 % NRG Blood band neutrophils/100 leukocytes 0 % NRG Manual blood lymphocytes/100 leukocytes 90 % NRG Manual eosinophils/100 leukocytes in nose 1 % NRG Manual blood basophils/100 leukocytes 0 % NRG Blood erythrocyte morphology finding identification NORMAL NRG Blood lactic acid measurement (moles/volume) - 09/15/16 19:33 Blood lactic acid measurement (moles/volume) 0.99 mmol/L 0.50-2.00 Bilirubin direct - 09/15/16 19:40 Bilirubin direct 4.5 mg/dL 0.0-0.3 Encounters ACCT No. Visit Date/Time Discharge Status Pt. Type Provider Facility Loc./Unit Complaint [id number] 11/22/2012 08:22:00 2012 23:59:59 CLS Outpatient LYNSEY GARCIA, HORTENCIA [facility] RAD WRIST PAIN [id number] 10/23/2012 11:56:00 2012 23:59:59 CLS Outpatient [id number] 09/15/2016 19:00:00 Document Registration [id number] 09/12/2016 10:14:00 ACT Outpatient OLIVE RUVALCABA [facility] SDC DEHYDRATION,COUGH,TACHYCARDEA
[2016-09-15 21:15] VITALS: BP 117/75
[2016-09-15 21:15] LABS: PROTHROMBIN TIME PATIENT 13.1 SEC (12.2-14.7)
[2016-09-15] MEDS ORDERED: NS IV 1000 ML 1,000 ML ONE (21:21)
[2016-09-15] MEDS: NS IV 1000 ML 1,000 ML IV SCH (21:52)
[2016-09-15] MEDS: TRIM/SULFAMETH 160/800 (SEPTRA DS) TAB PO SCH (21:57)
[2016-09-16] VITALS (7 sets, daily range): BP systolic 108–134; BP diastolic 53–73
[2016-09-16] MEDS: NS IV 1000 ML 1,000 ML IV SCH ×2 (05:26→22:29)
[2016-09-16 05:55] LABS: ALANINE AMINOTRANSFERASE 351 U/L (0-55); ALBUMIN 3.1 GM/DL (3.2-4.5); ANION GAP 11 MMOL/L (5-14); ASPARTATE AMINO TRANSFERASE 270 U/L (5-34); BILIRUBIN,TOTAL 4.8 MG/DL (0.1-1.0); BLOOD UREA NITROGEN 5 MG/DL (7-18); BUN/CREATININE RATIO 7; CALCIUM 8.3 MG/DL (8.5-10.1); CARBON DIOXIDE 20 MMOL/L (21-32); CHLORIDE 107 MMOL/L (98-107); CREATININE SERUM 0.74 MG/DL (0.60-1.30); GFR ESTIMATED > 60; GLUCOSE 101 MG/DL (70-105); POTASSIUM 3.5 MMOL/L (3.6-5.0); SODIUM 138 MMOL/L (135-145)
[2016-09-16] MEDS: TRIM/SULFAMETH 160/800 (SEPTRA DS) TAB PO SCH (06:14)
[2016-09-16] MEDS: IBUPROFEN 600 MG (MOTRIN) TAB PO PRN ×2 (10:49→19:51)
[2016-09-16] MEDS: ONDANSETRON 4 MG/2 ML (SDV) Z0FRAN IV PRN ×2 (11:13→19:54)
--- NOTE | 2016-09-16 12:17 | History & Physical ---
History of Present Illness History of Present Illness Reason for visit/HPI 20 yo F admitted for acute jaundice, intractable abdominal discomfort resulting in poor po intake. Appears pt has hepatitis, etiology not clear (viral vs autoimmune vs medication/drug). 1 week ago she went to [facility] for a trip- She did not eat or do anything abnormal. Denies etoh use. She ate at fast food restaurants with family- no one else has her symptoms- she started with fatigue, malaise- and body aches. Over the weekend she felt worse but Sunday maybe a little better with her appetite improving but Sunday09/12/16 she started feeling worse. [facility] ordered labs which showed a little elevation in LFTs and mono negative. She was started on rocephin injection and doxycycline- she tried the doxycycline but vomiting 20-25x so has stopped taking it- She returned to [facility] and got another rocephin shot. Pt presented to the ER on Sunday09/15/16 due to the jaundice that started on Pt thinks she might have had dysuria days ago. Denies any urinary complaints currently. Pt admitted for IVF and further workup -CT and RUQ u/s negative for gallbladder issues- notation of hepatomegaly, splenomegaly, steatosis; as well as a 3mm partially obstructing calculus in right ureter Dr. Lea consulted. Date of Admission Sep 15, 2016 at 20:54 Time Seen by Provider: 10:00 I consulted on this patient on 09/16/16 12:10 Attending Physician Sudhakar Ibarra MD Admitting Physician Daija Sahu MD Consult Allergies and Home Medications Allergies Coded Allergies: No Known Drug Allergies (Unverified , 09/12/16) Home Medications No Active Prescriptions or Reported Meds Past Lhfdfip-Fighhk-Yvaigs Hx Patient Social History Employed/Student: employed Alcohol Use: Denies Use Recreational Drug Use: No Smoking Status: Never a Smoker Physical Abuse Screen: No Sexual Abuse: No Recent Foreign Travel: No Contact w/other who traveled: No Recent Hopitalizations: No Recent Infectious Disease Expo: No Seasonal Allergies Seasonal Allergies: No Surgeries HX Surgeries: Yes (HERNIA SX WHEN A BABY) Surgeries: Adenoidectomy, Tonsillectomy Respiratory Hx Respiratory Disorders: No Cardiovascular Hx Cardiovascular Disorders: No Neurological Hx Neurological Disorders: No Reproductive System Hx Reproductive Disorders: No Genitourinary Hx Genitourinary Disorders: No Gastrointestinal Hx Gastrointestinal Disorders: No Gastrointestinal Disorders: Hepatitis Musculoskeletal Hx Musculoskeletal Disorders: No Endocrine Hx Endocrine Disorders: No HEENT HX ENT Disorders: Yes (GLASSES) Loss of Vision: Bilateral Hearing Impairment: Denies Cancer Hx Cancer: No Psychosocial Hx Psychiatric Problems: No Integumentary HX Skin/Integumentary Disorder: No Blood Transfusions Hx Blood Disorders: No Family Medical History Family Hx: FH: anemia 20 MOTHER Review of Systems Review of Systems Time Seen by Provider: 10:30 General: No Chills, No Night Sweats HEENT: Head Aches, No Visual Changes Pulmonary: No Dyspnea, No Cough Cardiovascular: No: Chest Pain, Orthopnea, Palpitations Gastrointestinal: Abdominal Pain, Nausea, Vomiting Genitourinary: No Dysuria, No Frequency Musculoskeletal: No: neck pain, shoulder pain Neurological: Weakness Physical Exam Vital Signs Vital Sign - Last 12Hours 09/15/16 09/15/16 18:35 21:10 Temp 100.7 Pulse 107 Resp 18 B/P (MAP) 121/81 Pulse Ox 96 O2 Delivery Room Air Capillary Refill : General Appearance: No Apparent Distress, WD/WN HEENT: PERRL/EOMI, Scleral Icterus (L), Scleral Icterus (R) Neck: Supple Respiratory: Chest Non Tender, Lungs Clear, Normal Breath Sounds, No Accessory Muscle Use, No Respiratory Distress Cardiovascular: Regular Rate, Rhythm, No Edema, No Murmur Gastrointestinal: Normal Bowel Sounds, Soft, Hepatomegaly, Splenomegaly, Tenderness (diffuse) Rectal: Deferred Back: Normal Inspection, CVA Tenderness (L), CVA Tenderness (R) (mild) Extremity: Non Tender, No Calf Tenderness Neurologic/Psychiatric: Alert, Oriented x3, No Motor/Sensory Deficits, Normal Mood/Affect Skin: Warm/Dry, Jaundice (abdomen) Assessment/Plan Assessment/Plan Assessment/Plan 20 yo F *intractable abdominal pain - improved, ivf *anorexia due to nausea, abdominal pain- improved- pt asked for food today * hepatitis- suspect viral- lymphocyte predominant leukocytosis- hep panel, hiv, CMV, EBV, tick born titers *jaundice- bilirubin improving *acute transaminitis- trending down *hepatomegaly, splenomegaly- seen on CT- monitor- *hepatic steatosis- healthy diet and exercise- weight loss will help with this. *UTI without gross hematuria - does not appear to be treated by rocephin or doxycycline- flank pain also noted so we will cover for pyelonephritis - will do daily levofloxacin as it is primarily handled by the renal system-- urine culture pending - also pt will be more compliant with daily antibiotic. * uretal stone- seen on CT- 3mm- may consider follow up with urology as outpt if issues ensue or recurrence of calculi. Dispo: IVF, monitor labs- will follow up tomorrow- consider if pt's labs continue to trend/improve and pt continues to improve possible d/c to home tomorrow. Problems: Clinical Quality Measures DVT/VTE Risk/Contraindication: Risk Factor Score Per Nursin RFS Level Per Nursing on Admit: 2=Moderate SUDHAKAR IBARRA MD Sep 16, 2016 12:16
--- NOTE | 2016-09-16 12:30 | Consultation ---
History of Present Illness History of Present Illness Patient Consulted On(kayla/time) 09/16/16 12:25 Time Seen by Provider: 11:48 History of Present Illness Surgery asked to consult regarding elevated LFT's. HPI: This is a 20 yo F admitted for acute jaundice, intractable abdominal discomfort resulting in poor po intake. Pt initially presented to ER on Sunday with "thought I had flu and my heart was beating fast". She states her primary care doctor told her it was in the 170's. Given fluids and ABX and sent home. She states she went to [facility] for a trip- She did not eat anything or do anything abnormal; she ate at 5 guys with her uncle who does not have any similar symptoms. Denies etoh use. She started with fatigue, malaise - and body aches over the weekend. She saw Dr. Sahu who ordered labs which showed a little elevation in LFTs. Pt thinks she might have had dysuria days ago. Denies any urinary complaints currently. She felt much worse yesterday and again went to the ER. Humphreys spot on Sunday and last night was negative. When seen today she states she still feels "run down and tired". She denies going outside in [place] (pt asked about Rincon dz). Her abdominal pain she describes as minimal. Allergies and Home Medications Allergies Coded Allergies: No Known Drug Allergies (Unverified , 09/12/16) Home Medications No Active Prescriptions or Reported Meds Past Htbtper-Tgakjz-Nxktan Hx Patient Social History Alcohol Use: Denies Use Recreational Drug Use: No Smoking Status: Never a Smoker Recent Foreign Travel: No Contact w/Someone Who Travel: No Recent Infectious Disease Expo: No Recent Hopitalizations: No Ebola Symptoms: Denies Symptoms Listed Physical Abuse Screen: No Sexual Abuse: No Immunizations Up To Date PED Vaccines UTD: Yes Seasonal Allergies Seasonal Allergies: No Surgeries HX Surgeries: Yes (HERNIA SX WHEN A BABY) Surgeries: Adenoidectomy, Tonsillectomy Respiratory Hx Respiratory Disorders: No Cardiovascular Hx Cardiac Disorders: No Neurological Hx Neurological Disorders: No Reproductive System Hx Reproductive Disorders: No Genitourinary Hx Genitourinary Disorders: No Gastrointestinal Hx Gastrointestinal Disorders: No (but does have elevated LFT's and jaundice) Musculoskeletal Hx Musculoskeletal Disorders: No Endocrine Hx Endocrine Disorders: No HEENT HX ENT Disorders: Yes (GLASSES) Loss of Vision: Bilateral Hearing Impairment: Denies Cancer Hx Cancer: No Psychosocial Hx Psychiatric Problems: No Integumentary HX Skin/Integumentary Disorder: No Blood Transfusions Hx Blood Disorders: No Family Medical History Significant Family History: Diabetes (denies), Other Conditions/Hx (States her father had thrombocytosis "platelets were in the millions") Family Medial History: FH: anemia 20 MOTHER Review of Systems-General Constitutional: dizziness, fever, malaise, weakness EENTM: No blurred vision, No epistaxis, No mouth pain, No mouth swelling, No throat swelling Respiratory: No cough, No dyspnea on exertion, No hemoptysis Cardiovascular: No chest pain, No edema, No palpitations Gastrointestinal: abdominal pain (diffuse, but maybe more lower abdomen), No constipation, No hematemesis, jaundice (I turned yellow so I went to the ER) Genitourinary: dysuria, frequency, No hematuria Musculoskeletal: No back pain, No joint pain, No joint swelling, No muscle stiffness Skin: change in color, No change in hair/nails, No lesions, No rash Psychiatric/Neurological: Denies Anxiety, Denies Depressed, Denies Seizure, Denies Tremors Other pt denies any heat or cold intolerance, no abnormal bruising or bleeding Physical Exam-General Problems Physical Exam Vital Signs Vital Sign - Last 12Hours 09/15/16 09/15/16 18:35 21:10 Temp 100.7 Pulse 107 Resp 18 B/P (MAP) 121/81 Pulse Ox 96 O2 Delivery Room Air Capillary Refill : General Appearance: WD/WN, no apparent distress, obese Eyes: Bilateral Eye EOMI, Bilateral Eye PERRL HEENT: pharynx normal, scleral icterus (R), scleral icterus (L) Neck: non-tender, full range of motion, supple, normal inspection Respiratory: chest non-tender, lungs clear, normal breath sounds, no respiratory distress, no accessory muscle use Cardiovascular: regular rate, rhythm, no edema, no gallop, no JVD, no murmur Gastrointestinal: normal bowel sounds, soft, no pulsatile mass, No rebound, tenderness (mild diffuse tenderness), hepatomegaly, spleenomegaly Rectal: deferred Back: no CVA tenderness, no vertebral tenderness Extremities: normal range of motion, non-tender, normal inspection, no pedal edema, no calf tenderness Neurologic/Psychiatric: rivet thrower II-XII nml as tested, no motor/sensory deficits, alert, normal mood/affect, oriented x 3 Skin: warm/dry, jaundice (mild) Lymphatic: no adenopathy (neck, axilla or groin) Data Review Labs Laboratory Tests 09/15/16 18:45: White Blood Count 15.1H, Red Blood Count 4.85, Hemoglobin 14.7, Hematocrit 42, Mean Corpuscular Volume 87, Mean Corpuscular Hemoglobin 30, Mean Corpuscular Hemoglobin Concent 35, Red Cell Distribution Width 13.4, Platelet Count 185, Mean Platelet Volume 10.2, Neutrophils (%) (Auto) 6L, Lymphocytes (%) (Auto) 74H , Monocytes (%) (Auto) 11, Eosinophils (%) (Auto) 1, Basophils (%) (Auto) 9, Neutrophils # (Auto) 0.9L, Lymphocytes # (Auto) 11.1H, Monocytes # (Auto) 1.6H, Eosinophils # (Auto) 0.1, Basophils # (Auto) 1.3H, Neutrophils % (Manual) 9, Lymphocytes % (Manual) 90, Monocytes % (Manual) 0, Eosinophils % (Manual) 1, Basophils % (Manual) 0, Band Neutrophils 0, Blood Morphology Comment NORMAL, Urine Color AMBERH, Urine Clarity CLEAR, Urine pH 6.5, Urine Specific [place] 1.015L, Urine Protein 2+H, Urine Glucose (UA) NEGATIVE, Urine Ketones NEGATIVE, Urine Nitrite NEGATIVE, Urine Bilirubin 3+H, Urine Urobilinogen 4H, Urine Leukocyte Esterase 3+H, Urine RBC (Auto) 5+H, Urine RBC 0-2, Urine WBC 10-25H, Urine Squamous Epithelial Cells 25-50H, Urine Crystals NONE, Urine Bacteria FEWH , Urine Casts NONE, Urine Mucus NEGATIVE, Urine Culture Indicated YES, Sodium Level 134L, Potassium Level 3.7, Chloride Level 101, Carbon Dioxide Level 21, Anion Gap 12, Blood Urea Nitrogen 8, Creatinine 0.75, Estimat Glomerular Filtration Rate > 60, BUN/Creatinine Ratio 11, Glucose Level 97, Calcium Level 9.6, Total Bilirubin 5.8H, Aspartate Amino Transf (AST/SGOT) 353H, Alanine Aminotransferase (ALT/SGPT) 449H, Alkaline Phosphatase 363H, Total Protein 7.7, Albumin 3.9, Lipase 18, Monoscreen NEGATIVE 09/15/16 19:33: Lactic Acid Level 0.99 09/15/16 19:40: Direct Bilirubin 4.5H 09/15/16 20:59: Prothrombin Time 13.1, INR Comment 1.0, Activated Partial Thromboplast Time 32 09/16/16 05:20: Sodium Level 138, Potassium Level 3.5L, Chloride Level 107, Carbon Dioxide Level 20L, Anion Gap 11, Blood Urea Nitrogen 5L, Creatinine 0.74, Estimat Glomerular Filtration Rate > 60, BUN/Creatinine Ratio 7, Glucose Level 101, Calcium Level 8.3L, Total Bilirubin 4.8H, Aspartate Amino Transf (AST/SGOT) 270H , Alanine Aminotransferase (ALT/SGPT) 351H, Alkaline Phosphatase 328H, Total Protein 6.0L, Albumin 3.1L Assessment/Plan Assessment/Plan Assessment/Plan 1. Elevated LFT's - US and CT show normal GB, mildly enlarged Liver and Spleen - Hepatitis panel ordered, will order EBV blood test, Rincon panel also pending - beginning to trend down 2. Leukocytosis - continue ABX, IV fluid, encourage PO, symptomatic control, could be due to UTI 3. UTI - on ABX, will see if microbiology was ordered, probably due to #4 4. Ureteral Stone - pt will have to wait and see if she passes this, may need to see Urology as an outpt No surgical intervention needed at this time, thank you for this consult. Clinical Quality Measures DVT/VTE Risk/Contraindication: Risk Factor Score Per Nursin RFS Level Per Nursing on Admit: 2=Moderate HEMANT SMYTH DO Sep 16, 2016 12:30
[2016-09-17 04:41] LABS: BASOPHILS # (AUTO) 0.5 10^3/uL (0.0-0.1); BASOPHILS % (AUTO) 5 % (0-10); EOSINOPHILS # (AUTO) 0.1 10^3/uL (0.0-0.3); EOSINOPHILS % (AUTO) 1 % (0-10); LYMPHOCYTES # (AUTO) 7.1 X 10^3 (1.0-4.0); LYMPHOCYTES % (AUTO) 73 % (12-44); MEAN CORPUSCULAR HEMOGLOBIN 31 PG (25-34); MEAN CORPUSCULAR HGB CONC 34 G/DL (32-36); MEAN CORPUSCULAR VOLUME 90 FL (80-99); MEAN PLATELET VOLUME 9.8 FL (7.4-10.4); MONOCYTES # (AUTO) 1.4 X 10^3 (0.0-1.0); MONOCYTES % (AUTO) 14 % (0-12); NEUTROPHILS # (AUTO) 0.7 X 10^3 (1.8-7.8); NEUTROPHILS % (AUTO) 7 % (42-75); PLATELET COUNT 140 10^3/uL (130-400); RED CELL DISTRIBUTION WIDTH 14.2 % (10.0-14.5); WHITE BLOOD COUNT 9.7 10^3/uL (4.3-11.0)
[2016-09-17 04:59] LABS: ALANINE AMINOTRANSFERASE 368 U/L (0-55); ALBUMIN 2.8 GM/DL (3.2-4.5); ANION GAP 8 MMOL/L (5-14); ASPARTATE AMINO TRANSFERASE 346 U/L (5-34); BILIRUBIN,TOTAL 4.3 MG/DL (0.1-1.0); BLOOD UREA NITROGEN 4 MG/DL (7-18); BUN/CREATININE RATIO 6; CALCIUM 8.3 MG/DL (8.5-10.1); CARBON DIOXIDE 21 MMOL/L (21-32); CHLORIDE 111 MMOL/L (98-107); CREATININE SERUM 0.65 MG/DL (0.60-1.30); GFR ESTIMATED > 60; GLUCOSE 108 MG/DL (70-105); POTASSIUM 3.6 MMOL/L (3.6-5.0); SODIUM 140 MMOL/L (135-145); TOTAL PROTEIN 5.8 GM/DL (6.4-8.2)
[2016-09-17] MEDS: NS IV 1000 ML 1,000 ML IV SCH (06:23)
[2016-09-17] MEDS: ONDANSETRON 4 MG/2 ML (SDV) Z0FRAN IV PRN (07:31)
[2016-09-17 08:15] VITALS: BP 117/65
[2016-09-17] MEDS ORDERED: LEVOFLOXACIN 750 MG/150 ML IV 150 ML IV SCH (09:00)
--- NOTE | 2016-09-17 11:52 | Progress Note ---
Subjective Time Seen by Provider: 10:31 Subjective/Events-last exam Pt seen and examined, she is worried about going home on PO meds; "I can't take pills". She is also asking what if something "bad" happens. Asking about kissing causing transmission of virus. Pt tolerating diet, pain mostly controlled and only has slight nausea. Review of Systems General: No Chills, No Night Sweats, Fatigue HEENT: Head Aches Pulmonary: No Dyspnea, No Cough Cardiovascular: No: Chest Pain Gastrointestinal: Abdominal Pain, Nausea, No: Vomiting Genitourinary: Frequency Objective Exam Vital Signs Date Time Temp Pulse Resp B/P (MAP) Pulse Ox O2 Delivery O2 Flow Rate FiO2 09/17/16 08:15 99.0 92 18 117/65 95 Room Air 09/16/16 23:40 98.8 93 20 117/68 94 Room Air 09/16/16 20:06 99.1 87 22 111/73 98 Room Air 09/16/16 16:00 99.6 95 22 124/55 96 Room Air 09/16/16 12:00 99.1 95 18 111/62 98 Room Air I & O 09/17/16 07:00 Intake Total 4075 ml Output Total 1200 ml Balance 2875 ml Capillary Refill : General Appearance: No Apparent Distress, WD/WN, Obese HEENT: PERRL/EOMI, TMs Normal, Scleral Icterus (L), Scleral Icterus (R) Neck: Full Range of Motion, Normal Inspection Respiratory: Normal Breath Sounds, No Accessory Muscle Use, No Respiratory Distress Cardiovascular: Regular Rate, Rhythm, Normal Peripheral Pulses Gastrointestinal: normal bowel sounds, soft, no pulsatile mass, No rebound, tenderness (mild diffuse tenderness), hepatomegaly, spleenomegaly Neurologic/Psychiatric: Alert, Oriented x3, No Motor/Sensory Deficits Skin: Jaundice Results Lab Laboratory Tests 09/17/16 04:31: White Blood Count 9.7, Red Blood Count 4.00L, Hemoglobin 12.2, Hematocrit 36, Mean Corpuscular Volume 90, Mean Corpuscular Hemoglobin 31, Mean Corpuscular Hemoglobin Concent 34, Red Cell Distribution Width 14.2, Platelet Count 140, Mean Platelet Volume 9.8, Neutrophils (%) (Auto) 7L, Lymphocytes (%) (Auto) 73H , Monocytes (%) (Auto) 14H, Eosinophils (%) (Auto) 1, Basophils (%) (Auto) 5, Neutrophils # (Auto) 0.7L, Lymphocytes # (Auto) 7.1H, Monocytes # (Auto) 1.4H, Eosinophils # (Auto) 0.1, Basophils # (Auto) 0.5H, Sodium Level 140, Potassium Level 3.6, Chloride Level 111H, Carbon Dioxide Level 21, Anion Gap 8, Blood Urea Nitrogen 4L, Creatinine 0.65, Estimat Glomerular Filtration Rate > 60, BUN/ Creatinine Ratio 6, Glucose Level 108H, Calcium Level 8.3L, Magnesium Level 2.0 , Total Bilirubin 4.3H, Aspartate Amino Transf (AST/SGOT) 346H, Alanine Aminotransferase (ALT/SGPT) 368H, Alkaline Phosphatase 351H, Total Protein 5.8L , Albumin 2.8L Microbiology 09/15/16 Blood Culture - Preliminary, Resulted No growth 09/15/16 Urine Culture - Final, Complete Enterococcus Faecalis Staph, Coag Neg (Wire Taper) Assessment/Plan Assessment/Plan Assessment/Plan R/O Hepatitis -serology not back yet. Pt can be d/c'd home and f/u with primary care for results. UTI - flank pain also noted so we will cover for pyelonephritis - will do daily levofloxacin as it is primarily handled by the renal system-- urine culture pending - also pt will be more compliant with daily Ureteral Stone - seen on CT- 3mm- may consider follow up with urology as outpt Jaundice- bilirubin improving Elevated LFT's- trending down *hepatomegaly, splenomegaly- seen on CT- monitor- *hepatic steatosis- healthy diet and exercise- weight loss will help with this. Clinical Quality Measures DVT/VTE Risk/Contraindication: Risk Factor Score Per Nursin RFS Level Per Nursing on Admit: 2=Moderate HEMANT SMYTH DO Sep 17, 2016 11:52
--- NOTE | 2016-09-17 12:26 | Discharge Summary ---
Diagnosis/Chief Complaint Date of Admission Sep 15, 2016 at 20:54 Date of Discharge September 17 2016 Admission Diagnosis Admission Diagnosis *intractable abdominal pain - *anorexia due to nausea, abdominal pain- *jaundice- *acute transaminitis- *hepatomegaly, splenomegaly- *hepatic steatosis *UTI without gross hematuria - * uretal stone Discharge Diagnosis *intractable abdominal pain - resolved *anorexia due to nausea, abdominal pain- resolved *jaundice- improved *hyperbilirubinemia- improved *acute transaminitis- *hepatomegaly, splenomegaly- *hepatic steatosis *obesity *UTI without gross hematuria - * uretal stone Reason Hospital Visit 20 yo F admitted for acute jaundice, intractable abdominal discomfort resulting in poor po intake. Appears pt has hepatitis, etiology not clear (viral vs autoimmune vs medication/drug). 1 week ago she went to [facility] for a trip- She did not eat or do anything abnormal. Denies etoh use. She ate at fast food restaurants with family- no one else has her symptoms- she started with fatigue, malaise- and body aches. Over the weekend she felt worse but Sunday maybe a little better with her appetite improving but Sunday09/12/16 she started feeling worse. [facility] ordered labs which showed a little elevation in LFTs and mono negative. She was started on rocephin injection and doxycycline- she tried the doxycycline but vomiting 20-25x so has stopped taking it- She returned to [facility] and got another rocephin shot. Pt presented to the ER on Sunday09/15/16 due to the jaundice that started on Pt thinks she might have had dysuria days ago. Denies any urinary complaints currently. Pt admitted for IVF and further workup -CT and RUQ u/s negative for gallbladder issues- notation of hepatomegaly, splenomegaly, steatosis; as well as a 3mm partially obstructing calculus in right ureter Dr. Lea consulted. Discharge Summary Hospital Course Hospital Course 20 yo Female with no significant PMH- admitted for further evaluation of her jaundice and acute transaminitis- IVF were started with improvement in patient' s condition- she reported being really hungry and she was tolerating a full diet on day 1. Her LFTs improved initially but then went up a little on recheck. Pt's abdominal pain nearly resolved. Bilirubin continued to improve. Patient's UTI and possible early pyelonephritis will be treated with 5 days of levofloxacin. Pt has issue with compliance on antibiotics as they upset her stomach. Adviced pt no contact sports or strenuous activity for 1 month due to her enlarged liver/spleen. As for her *hepatic steatosis- stressed importance of healthy diet and exercise- weight loss will help with this. Will consider giving steroids at follow up visit pending viral labs results as this also could be autoimmune vs medication provoked condition (such as ceftriaxone). Will look for lab results this week. * uretal stone- seen on CT- 3mm- may consider follow up with urology as outpt if issues ensue or recurrence of calculi. Complete course of levofloxacin for total of 5 days for UTI/pyelonephritis Repeat CMP, CBC 09/22/2016 Labs Laboratory Tests 09/15/16 18:45: White Blood Count 15.1H, Neutrophils (%) (Auto) 6L, Lymphocytes (%) (Auto) 74H, Neutrophils # (Auto) 0.9L, Lymphocytes # (Auto) 11.1H, Monocytes # (Auto) 1.6H, Basophils # (Auto) 1.3H, Urine Color AMBERH, Urine Specific [place] 1.015L, Urine Protein 2+H, Urine Bilirubin 3+H, Urine Urobilinogen 4H, Urine Leukocyte Esterase 3+H, Urine RBC (Auto) 5+H, Urine WBC 10-25H, Urine Squamous Epithelial Cells 25-50H, Urine Bacteria FEWH, Sodium Level 134L, Total Bilirubin 5.8H, Aspartate Amino Transf (AST/SGOT) 353H, Alanine Aminotransferase (ALT/SGPT) 449H , Alkaline Phosphatase 363H 09/15/16 19:33: 09/15/16 19:40: Direct Bilirubin 4.5H 09/15/16 20:59: 09/16/16 05:20: Potassium Level 3.5L, Carbon Dioxide Level 20L, Blood Urea Nitrogen 5L, Calcium Level 8.3L, Total Bilirubin 4.8H, Aspartate Amino Transf (AST/SGOT) 270H, Alanine Aminotransferase (ALT/SGPT) 351H, Alkaline Phosphatase 328H, Total Protein 6.0L, Albumin 3.1L 09/17/16 04:31: Blood Urea Nitrogen 4L, Calcium Level 8.3L, Total Bilirubin 4.3H, Aspartate Amino Transf (AST/SGOT) 346H, Alanine Aminotransferase (ALT/SGPT) 368H, Alkaline Phosphatase 351H, Total Protein 5.8L, Albumin 2.8L, Red Blood Count 4.00L, Neutrophils (%) (Auto) 7L, Lymphocytes (%) (Auto) 73H, Monocytes (%) ( Auto) 14H, Neutrophils # (Auto) 0.7L, Lymphocytes # (Auto) 7.1H, Monocytes # ( Auto) 1.4H, Basophils # (Auto) 0.5H, Chloride Level 111H, Glucose Level 108H Procedures None. Consultations Dr. Lea Surgery Discharge Physical Examination Allergies: Coded Allergies: No Known Drug Allergies (Unverified , 09/12/16) Vitals & I&Os Vital Signs Date Time Temp Pulse Resp B/P (MAP) Pulse Ox O2 Delivery O2 Flow Rate FiO2 09/17/16 08:15 99.0 92 18 117/65 95 Room Air General Appearance: Alert, Oriented X3, Cooperative HEENT: Atraumatic, Other (slceral icterus) Respiratory: Clear to Auscultation Cardiovascular: Regular Rate, Normal S1, Normal S2 Abdominal: Normal Bowel Sounds, Soft Extremities: No Clubbing, No Cyanosis Skin: No Rashes, No Breakdown Neuro: Normal Gait, Normal Speech, Strength at 5/5 X4 Ext Psych/Mental Status: Mental Status NL Discharge Home Medications Reviewed and agree with Discharge Medication list on patient's Discharge Instruction sheet Condition at Discharge stable Instructions to Patient/Family Please see electronic discharge instructions given to patient. Clinical Quality Measures DVT/VTE Risk/Contraindication: Risk Factor Score Per Nursin RFS Level Per Nursing on Admit: 2=Moderate SUMI IBARRA MD Sep 17, 2016 12:26
[2016-09-17] MEDS ORDERED: KETO10TA PO (12:41)
[2016-09-17] MEDS ORDERED: LEVO750T39 PO (12:41)
[2016-09-17] MEDS ORDERED: ONDA4TAB10 PO (12:45)
--- NOTE | 2016-09-17 12:54 | Discharge Inst-Simple/Standard ---
Discharge Inst-Standard Patient Instructions/Follow Up Plan of Care/Instructions/FU: finish levofloxacin x4 days September 18-22 july use ketoralac for pain may use ondansetron (zofran) for nausea. Repeat CMP, CBC 09/22/2016 Activity as Tolerated: Yes Discharge Diet: Eat Small Frequent Meals Return to The Hospital For: new concerns worsening abdominal pain Other Inst to Patient Follow up appt September 25, 2016 200pm at [facility], SUMI Dinh MD Sep 17, 2016 12:54
[2016-09-18 08:17] LABS: GAMMA GLUTAMYL TRANSFER (GGT) 454 U/L (0-45)
[2016-09-18 15:09] LABS: IGG ROCKY MOUNTAIN SPOTTED FEV <1:16 (<1:16); IGM ROCKY MOUNTAIN SPOTTED FEV <1:10 (<1:10)
== END 2016-09-17 13:10 | disposition home or self-care (01) | DRG 442 ==
LOC: ER 18:28 → 4TH 20:54
PROVIDERS: ADMIT Family Medicine; ATTEND Family Medicine
DX: K75.9 Inflammatory liver disease, unspecified (principal); N39.0 Urinary tract infection, site not specified; N20.1 Calculus of ureter; E66.9 Obesity, unspecified; K76.0 Fatty (change of) liver, not elsewhere classified; R63.0 Anorexia
CPT/HCPCS: 36415; 74177; 76705; 80053; 80074; 81000; 82248; 82977; 83605; 83690; 83735; 84703; 85007; 85025; 85027; 85610; 85730; 86308; 86618; 86644; 86645; 86665; 86666; 86668; 86703; 86757; 87040; 87077; 87088; 87186; 96361; 96365; 96375

== ENCOUNTER → 2016-09-22 | Outpatient (CLI) | payer OTHER ==
[~2016-09-22] MED LIST changes: +KETO10TA PO; +LEVO750T39 PO; -NS (IVPB) 50 ML ONE; -NS IV 1000 ML 2,000 ML ONE; +ONDA4TAB10 PO; -cefTRIAXone 1 GM (ROCEPHIN) VIAL ONE; -cefTRIAXone 1 GM/NS 50 ML IVPB IV ONE
[2016-09-22 15:59] LABS: MEAN PLATELET VOLUME 9.6 FL (7.4-10.4); RED BLOOD COUNT 5.04 10^6/uL (4.35-5.85); RED CELL DISTRIBUTION WIDTH 15.5 % (10.0-14.5); WHITE BLOOD COUNT 17.7 10^3/uL (4.3-11.0)
[2016-09-22 16:27] LABS: ALANINE AMINOTRANSFERASE 449 U/L (0-55); ALBUMIN 3.9 GM/DL (3.2-4.5); ANION GAP 10 MMOL/L (5-14); ASPARTATE AMINO TRANSFERASE 297 U/L (5-34); BILIRUBIN,TOTAL 3.2 MG/DL (0.1-1.0); BLOOD UREA NITROGEN 10 MG/DL (7-18); BUN/CREATININE RATIO 13; CALCIUM 9.6 MG/DL (8.5-10.1); CARBON DIOXIDE 24 MMOL/L (21-32); CHLORIDE 104 MMOL/L (98-107); CREATININE SERUM 0.77 MG/DL (0.60-1.30); GFR ESTIMATED > 60; GLUCOSE 95 MG/DL (70-105); POTASSIUM 4.4 MMOL/L (3.6-5.0); SODIUM 138 MMOL/L (135-145); TOTAL PROTEIN 8.1 GM/DL (6.4-8.2)
== END ==
LOC: LAB 15:06
PROVIDERS: ATTEND Family Medicine
DX: R74.0 Nonspecific elevation of levels of transaminase and lactic acid dehydrogenase [LDH] (principal)
CPT/HCPCS: 36415; 80053; 85027

== ENCOUNTER → 2016-10-04 | Outpatient (CLI) | payer OTHER ==
[2016-10-04 13:17] LABS: BASOPHILS # (AUTO) 0.1 10^3/uL (0.0-0.1); BASOPHILS % (AUTO) 1 % (0-10); EOSINOPHILS # (AUTO) 0.1 10^3/uL (0.0-0.3); EOSINOPHILS % (AUTO) 1 % (0-10); LYMPHOCYTES # (AUTO) 3.8 X 10^3 (1.0-4.0); LYMPHOCYTES % (AUTO) 53 % (12-44); MEAN CORPUSCULAR HEMOGLOBIN 30 PG (25-34); MEAN CORPUSCULAR HGB CONC 34 G/DL (32-36); MEAN CORPUSCULAR VOLUME 90 FL (80-99); MONOCYTES # (AUTO) 0.8 X 10^3 (0.0-1.0); MONOCYTES % (AUTO) 11 % (0-12); NEUTROPHILS # (AUTO) 2.5 X 10^3 (1.8-7.8); NEUTROPHILS % (AUTO) 35 % (42-75); PLATELET COUNT 284 10^3/uL (130-400); RED BLOOD COUNT 4.58 10^6/uL (4.35-5.85); RED CELL DISTRIBUTION WIDTH 13.3 % (10.0-14.5); WHITE BLOOD COUNT 7.3 10^3/uL (4.3-11.0)
[2016-10-04 13:41] LABS: ALANINE AMINOTRANSFERASE 70 U/L (0-55); ALBUMIN 3.9 GM/DL (3.2-4.5); ANION GAP 7 MMOL/L (5-14); ASPARTATE AMINO TRANSFERASE 46 U/L (5-34); BILIRUBIN,TOTAL 1.5 MG/DL (0.1-1.0); BLOOD UREA NITROGEN 8 MG/DL (7-18); BUN/CREATININE RATIO 12; CARBON DIOXIDE 23 MMOL/L (21-32); CHLORIDE 108 MMOL/L (98-107); CREATININE SERUM 0.69 MG/DL (0.60-1.30); GFR ESTIMATED > 60; GLUCOSE 93 MG/DL (70-105); POTASSIUM 4.3 MMOL/L (3.6-5.0); SODIUM 138 MMOL/L (135-145); TOTAL PROTEIN 7.1 GM/DL (6.4-8.2)
[2016-10-04 13:54] LABS: BAND NEUTROPHILS 3 %; BASOPHILS % (MANUAL) 1 %; EOSINOPHILS % (MANUAL) 0 %; LYMPHOCYTES % (MANUAL) 46 %; NEUTROPHILS % (MANUAL) 37 %; REACTIVE LYMPHOCYTES 1 %
== END ==
LOC: LAB 12:59
PROVIDERS: ATTEND Family Medicine
DX: R94.5 Abnormal results of liver function studies (principal); A77.49 Other ehrlichiosis
CPT/HCPCS: 36415; 80053; 85007; 85027

== ENCOUNTER → 2016-10-12 | Outpatient (CLI) | payer OTHER ==
[2016-10-12 18:17] LABS: ALANINE AMINOTRANSFERASE 73 U/L (0-55); ALBUMIN 4.2 GM/DL (3.2-4.5); ANION GAP 12 MMOL/L (5-14); ASPARTATE AMINO TRANSFERASE 55 U/L (5-34); BILIRUBIN,TOTAL 1.6 MG/DL (0.1-1.0); BLOOD UREA NITROGEN 11 MG/DL (7-18); BUN/CREATININE RATIO 15; CARBON DIOXIDE 20 MMOL/L (21-32); CHLORIDE 107 MMOL/L (98-107); CREATININE SERUM 0.72 MG/DL (0.60-1.30); GFR ESTIMATED > 60; GLUCOSE 86 MG/DL (70-105); SODIUM 139 MMOL/L (135-145); TOTAL PROTEIN 7.5 GM/DL (6.4-8.2)
== END ==
LOC: LAB 17:39
PROVIDERS: ATTEND Family Medicine
DX: R17 Unspecified jaundice (principal)
CPT/HCPCS: 36415; 80053

== ENCOUNTER 2016-12-29 11:35 | Emergency (ER) | payer OTHER ==
[~2016-12-29] VITALS: Ht 160 cm; Wt 113.4 kg
[2016-12-29] MEDS ORDERED: DICY20TA10 PO (11:51)
[2016-12-29] MEDS ORDERED: NS IV 1000 ML 1,000 ML IV ONE (11:55)
[2016-12-29 12:01] LABS: BILIRUBIN,URINE NEGATIVE (NEGATIVE); KETONES,URINE NEGATIVE (NEGATIVE); LEUKOCYTE ESTERASE ,URINE 1+ (NEGATIVE); NITRITE,URINE NEGATIVE (NEGATIVE); PH,URINE 5 (5-9); PROTEIN,URINE NEGATIVE (NEGATIVE); UROBILINOGEN,URINE NORMAL (NORMAL)
--- NOTE | 2016-12-29 12:02 | ED General ---
General Chief Complaint: General Problems/Pain Stated Complaint: HEART RATE HIGH Nursing Triage Note: PT STATES WATCH SAID SHE HAD A FAST HR 147, NAUSEA AFTER EATING, DIFFUSE INTERMITTENT ABD PAIN, HAS FELT BAD FOR 4 MONTHS SINCE TICK BORNE ILLNESS Nursing Sepsis Screen: No Definite Risk Source of Information: Patient Exam Limitations: No Limitations History of Present Illness Time Seen by Provider: 11:50 Initial Comments Here with report of fast heart rate this morning and nausea. States that she believes she's had intermittent fevers and intermittent abdominal pain. Reports feeling bad over the last several months. She is postop follow-up with the GI specialist has not done that yet. Denies significant caffeine intake. Denies dysuria or diarrhea. States he is eating and drinking okay otherwise. Timing/Duration: 4-6 Hours Severity: Moderate Associated Systoms: No Chest Pain, No Cough, Fever/Chills, Nausea/Vomiting, Shortness of Air, No Weakness Allergies and Home Medications Allergies Coded Allergies: No Known Drug Allergies (Unverified , 09/12/16) Home Medications Dicyclomine HCl 20 Mg Tablet, 20 MG PO TIDAC, (Reported) Ondansetron HCl 4 Mg Tablet, 4 MG PO Q12H PRN for NAUSEA/VOMITING-1ST LINE, #20 Prescribed by: SUMI IBARRA on 09/17/16 1245 Constitutional: see HPI, No chills, fever EENTM: no symptoms reported Respiratory: No cough, short of breath Cardiovascular: No chest pain, palpitations Gastrointestinal: No abdominal pain, nausea, No vomiting Genitourinary: no symptoms reported Musculoskeletal: no symptoms reported Skin: no symptoms reported All Other Systems Reviewed Negative Unless Noted: Yes Past Tjgvtye-Osirwj-Mojvno Hx Patient Social History Alcohol Use: Denies Use Recreational Drug Use: No Smoking Status: Never a Smoker Recent Foreign Travel: No Contact w/Someone Who Travel: No Recent Infectious Disease Expo: No Recent Hopitalizations: No Physical Abuse: No Sexual Abuse: No Immunizations Up To Date PED Vaccines UTD: Yes Seasonal Allergies Seasonal Allergies: No Surgeries History of Surgeries: Yes (HERNIA SX WHEN A BABY) Surgeries: Adenoidectomy, Tonsillectomy Respiratory History of Respiratory Disorde: No Cardiovascular History of Cardiac Disorders: No Neurological History of Neurological Disord: No Reproductive System : No (TAKES DEPO SHOT) Hx Reproductive Disorders: No Genitourinary History of Genitourinary Disor: No (UTI-ADMITTED 09/15/16) Gastrointestinal History of Gastrointestinal Di: No (but does have elevated LFT's and jaundice) Gastrointestinal Disorders: Hepatitis Musculoskeletal History of Musculoskeletal Dis: No Endocrine History of Endocrine Disorders: No HEENT History of HEENT Disorders: No (GLASSES) Loss of Vision: Bilateral Hearing Impairment: Denies Cancer History of Cancer: No Psychosocial History of Psychiatric Problem: No Suicide Risk Score: 0 Integumentary History of Skin or Integumenta: No Blood Transfusions History of Blood Disorders: No Reviewed Nursing Assessment Reviewed/Agree w Nursing PMH: Yes Family Medical History Significant Family History: No Pertinent Family Hx, Diabetes, Other Conditions/ Hx Family Medial History: FH: anemia 20 MOTHER Physical Exam Vital Signs Vital Sign - Last 12Hours 12/29/16 11:40 Temp 97.9 Pulse 96 Resp 18 B/P (MAP) 130/89 Pulse Ox 98 Capillary Refill : Less Than 3 Seconds General Appearance: No Apparent Distress, WD/WN HEENT: PERRL/EOMI, Pharynx Normal Neck: Non Tender, Supple Respiratory: Lungs Clear, Normal Breath Sounds Cardiovascular: Regular Rate, Rhythm, No Murmur Gastrointestinal: Non Tender, Soft Back: Normal Inspection, No CVA Tenderness, No Vertebral Tenderness Extremity: Normal Range of Motion, Non Tender Neurologic/Psychiatric: Alert, Oriented x3 Skin: Normal Color, Warm/Dry Progress/Results/Core Measures Results/Orders Lab Results Laboratory Tests Test 12/29/16 11:46 12/29/16 12:20 Range/Units Urine Color YELLOW Urine Clarity CLEAR Urine pH 5 5-9 Urine Specific [place] 1.020 1.016-1.022 Urine Protein NEGATIVE NEGATIVE Urine Glucose (UA) NEGATIVE NEGATIVE Urine Ketones NEGATIVE NEGATIVE Urine Nitrite NEGATIVE NEGATIVE Urine Bilirubin NEGATIVE NEGATIVE Urine Urobilinogen NORMAL NORMAL MG/DL Urine Leukocyte Esterase 1+ H NEGATIVE Urine RBC (Auto) 1+ H NEGATIVE Urine RBC 0-2 /HPF Urine WBC 0-2 /HPF Urine Squamous Epithelial Cells 5-10 /HPF Urine Crystals NONE /LPF Urine Bacteria TRACE /HPF Urine Casts NONE /LPF Urine Mucus NEGATIVE /LPF Urine Culture Indicated NO White Blood Count 11.5 H 4.3-11.0 10^3/uL Red Blood Count 4.79 4.35-5.85 10^6/uL Hemoglobin 14.3 11.5-16.0 G/DL Hematocrit 41 35-52 % Mean Corpuscular Volume 86 80-99 FL Mean Corpuscular Hemoglobin 30 25-34 PG Mean Corpuscular Hemoglobin Concent 35 32-36 G/DL Red Cell Distribution Width 12.1 10.0-14.5 % Platelet Count 289 130-400 10^3/uL Mean Platelet Volume 9.4 7.4-10.4 FL Neutrophils (%) (Auto) 68 42-75 % Lymphocytes (%) (Auto) 23 12-44 % Monocytes (%) (Auto) 6 0-12 % Eosinophils (%) (Auto) 2 0-10 % Basophils (%) (Auto) 0 0-10 % Neutrophils # (Auto) 7.8 1.8-7.8 X 10^3 Lymphocytes # (Auto) 2.7 1.0-4.0 X 10^3 Monocytes # (Auto) 0.7 0.0-1.0 X 10^3 Eosinophils # (Auto) 0.2 0.0-0.3 10^3/uL Basophils # (Auto) 0.0 0.0-0.1 10^3/uL Sodium Level 139 135-145 MMOL/L Potassium Level 4.3 3.6-5.0 MMOL/L Chloride Level 107 98-107 MMOL/L Carbon Dioxide Level 24 21-32 MMOL/L Anion Gap 8 5-14 MMOL/L Blood Urea Nitrogen 9 7-18 MG/DL Creatinine 0.76 0.60-1.30 MG/DL Estimat Glomerular Filtration Rate > 60 BUN/Creatinine Ratio 12 Glucose Level 109 H 70-105 MG/DL Calcium Level 9.2 8.5-10.1 MG/DL Total Bilirubin 0.7 0.1-1.0 MG/DL Aspartate Amino Transf (AST/SGOT) 28 5-34 U/L Alanine Aminotransferase (ALT/SGPT) 41 0-55 U/L Alkaline Phosphatase 104 40-136 U/L C-Reactive Protein High Sensitivity 1.11 H 0.00-0.50 MG/DL Total Protein 7.2 6.4-8.2 GM/DL Albumin 4.0 3.2-4.5 GM/DL Lipase 23 8-78 U/L My Orders Orders - ERIC GUZMAN MD Urine Bedside (12/29/16 11:55) Ekg Tracing (12/29/16 11:55) Monitor-Rhythm Ecg Trace Only (12/29/16 11:55) Cbc With Automated Diff (12/29/16 11:55) Comprehensive Metabolic Panel (12/29/16 11:55) Hs C Reactive Protein (12/29/16 11:55) Lipase (12/29/16 11:55) Ua Culture If Indicated (12/29/16 11:55) Chest 1 View, Ap/Pa Only (12/29/16 11:55) Saline Lock/Iv-Start (12/29/16 11:55) Ns Iv 1000 Ml (Sodium Chloride 0.9%) (12/29/16 11:55) Thyroid Stimulating Hormone (12/29/16 12:02) Ondansetron Injection (Zofran Injectio (12/29/16 12:30) Ondansetron Injection (Zofran Injectio (12/29/16 12:15) Medications Given in ED Current Medications Medications Dose Ordered Sig/Keyana Route Start Time Stop Time Status Last Admin Dose Admin Ondansetron HCl 4 mg ONCE ONCE IVP 12/29/16 12:30 12/29/16 12:31 DC 12/29/16 12:25 4 MG Sodium Chloride 1,000 ml @ 0 mls/hr Q0M ONCE IV 12/29/16 11:55 12/29/16 11:57 DC 12/29/16 12:24 1,000 MLS/HR Vital Signs/I&O Vital Sign - Last 12Hours 12/29/16 11:40 Temp 97.9 Pulse 96 Resp 18 B/P (MAP) 130/89 Pulse Ox 98 Blood Pressure Mean: 103 Progress Note : Progress Note Seen and evaluated. IV, labs, UA, UCG, normal saline 1 L bolus ordered. EKG and chest x-ray ordered. Monitor patient. Zofran 4 mg IV given for nausea. 1300: No significant findings on laboratory data. Fluids continuing. Patient has nausea medicines at home. We will discharge her home and have her continue her home medicines and follow-up with her physician. Copy of chart for Dr. Ibarra. Discharged home with return precautions. Patient verbalized understanding instructions and agreement with plan. ECG Initial ECG Impression Date: Dec 29, 2016 Initial ECG Impression Time: 12:12 Initial ECG Rate: 88 Initial ECG Rhythm: Normal Sinus Initial ECG Impression: Normal Initial ECG Comparisson: No Previous ECG Available Comment Sinus rhythm with normal axis. No evidence of ST elevation NV. No previous available for comparison. Interpreted by me. Diagnostic Imaging Diagonstic Imaging: Xray Plain Films/CT/US/NM/MRI: chest Comments [facility]. [place], [place] NAME: ASHER NICE [facility] REC#: [id number] PT STATUS: REG ER : 1995 PHYSICIAN: ERIC GUZMAN MD ADMIT DATE: 12/29/16/ER Draft Date of Exam:12/29/16 CHEST 1 VIEW, AP/PA ONLY EXAMINATION: Portable upright radiograph of the chest. INDICATION: Shortness of breath. FINDINGS: The lungs are clear. The heart size is normal. No effusion or pneumothorax. The mediastinum and ashok appear unremarkable. IMPRESSION: Unremarkable exam. Dictated on workstation # [id number] Dict: 12/29/16 1216 Trans: 12/29/16 1218 [facility] [id number] Interpreted by: DOMINIC SAAVEDRA MD Electronically signed by: Departure Impression Impression: Primary Impression: Palpitations Additional Impression: Nausea Disposition: 01 HOME, SELF-CARE Condition: Stable Departure-Patient Inst. Decision time for Depature: 13:05 Referrals: SUMI IBARRA MD (PCP/Family) Primary Care Physician Patient Instructions: Nausea and Vomiting, Adult (DC), Palpitations (DC) Add. Discharge Instructions: All discharge instructions reviewed with patient and/or family. Voiced understanding. Drink plenty of fluids. Follow-up with your doctor early next week for recheck and further evaluation. Return for worse pain, fever, vomiting, weakness, breathing problems or other concerns as needed. Copy Copies To 1: SUMI IBARRA MD, TIMOTHY D MD Dec 29, 2016 12:01
[2016-12-29 12:07] LABS: WBC,URINE 0-2 /HPF
[2016-12-29] MEDS ORDERED: ONDANSETRON 4 MG/2 ML (SDV) Z0FRAN ONE (12:15)
--- NOTE | 2016-12-29 12:18 | Diagnostic Imaging Report ---
EXAMINATION: Portable upright radiograph of the chest. INDICATION: Shortness of breath. FINDINGS: The lungs are clear. The heart size is normal. No effusion or pneumothorax. The mediastinum and ashok appear unremarkable. IMPRESSION: Unremarkable exam. Dictated by: Dictated on workstation # [id number]
[2016-12-29 12:27] LABS: BASOPHILS % (AUTO) 0 % (0-10); EOSINOPHILS # (AUTO) 0.2 10^3/uL (0.0-0.3); EOSINOPHILS % (AUTO) 2 % (0-10); LYMPHOCYTES # (AUTO) 2.7 X 10^3 (1.0-4.0); LYMPHOCYTES % (AUTO) 23 % (12-44); MEAN CORPUSCULAR HEMOGLOBIN 30 PG (25-34); MEAN CORPUSCULAR HGB CONC 35 G/DL (32-36); MEAN CORPUSCULAR VOLUME 86 FL (80-99); MEAN PLATELET VOLUME 9.4 FL (7.4-10.4); MONOCYTES # (AUTO) 0.7 X 10^3 (0.0-1.0); MONOCYTES % (AUTO) 6 % (0-12); NEUTROPHILS # (AUTO) 7.8 X 10^3 (1.8-7.8); NEUTROPHILS % (AUTO) 68 % (42-75); PLATELET COUNT 289 10^3/uL (130-400); RED BLOOD COUNT 4.79 10^6/uL (4.35-5.85); RED CELL DISTRIBUTION WIDTH 12.1 % (10.0-14.5); WHITE BLOOD COUNT 11.5 10^3/uL (4.3-11.0)
[2016-12-29] MEDS ORDERED: ONDANSETRON 4 MG/2 ML (SDV) Z0FRAN IVP ONE (12:30)
[2016-12-29 12:46] LABS: ALANINE AMINOTRANSFERASE 41 U/L (0-55); ANION GAP 8 MMOL/L (5-14); ASPARTATE AMINO TRANSFERASE 28 U/L (5-34); BILIRUBIN,TOTAL 0.7 MG/DL (0.1-1.0); BLOOD UREA NITROGEN 9 MG/DL (7-18); BUN/CREATININE RATIO 12; CALCIUM 9.2 MG/DL (8.5-10.1); CARBON DIOXIDE 24 MMOL/L (21-32); CHLORIDE 107 MMOL/L (98-107); CREATININE SERUM 0.76 MG/DL (0.60-1.30); GFR ESTIMATED > 60; GLUCOSE 109 MG/DL (70-105); LIPASE 23 U/L (8-78); POTASSIUM 4.3 MMOL/L (3.6-5.0); SODIUM 139 MMOL/L (135-145); TOTAL PROTEIN 7.2 GM/DL (6.4-8.2); hs C REACTIVE PROTEIN 1.11 MG/DL (0.00-0.50)
[2016-12-29 13:05] LABS: THYROID STIMULATING HORMONE 2.98 UIU/ML (0.35-4.94)
[2016-12-29 13:07] VITALS: BP 110/79
== END 2016-12-29 13:28 | disposition home or self-care (01) ==
LOC: EDUNIT# 11:35 → ER 11:36
DX: R00.2 Palpitations (principal); R11.0 Nausea; Z87.19 Personal history of other diseases of the digestive system; Z87.440 Personal history of urinary (tract) infections; Z90.89 Acquired absence of other organs
CPT/HCPCS: 36415; 71010; 80053; 81000; 83690; 84443; 84703; 85025; 86141; 93005; 93041

== ENCOUNTER 2018-11-03 16:06 | Outpatient (CLI) | payer BC ==
[~2018-11-03] VITALS: Ht 160 cm; Wt 125.7 kg
[~2018-11-03 16:06] MED LIST changes: +DICY20TA10 PO
--- NOTE | 2018-11-03 16:13 | NUR ---
ASHER NICE presented to unit via from ED, accompanied by S.O., with c/o R SIDE LOWER BACK PAIN/NAUSEA. ASHER NICE weighed, gowned, and to bed. STATES UNABLE TO VOID AT THIS TIME.FHR 150'S PER DOPPLER JUST TO THE RIGHT OF UMBILICUS. VS taken. ASHER NICE oriented to bed controls, call light, TV, heat, and A/C controls.
[2018-11-03 16:17] VITALS: BP 136/68
[2018-11-03 16:27] VITALS: BP 120/60
--- NOTE | 2018-11-03 16:30 | NUR ---
Dr. Mac called and notified of NLP pt presenting with constant lower R back pain that started 1-1.5hrs ago. notified of hx (G1, due 03/17/19, 20/6wks, no complications), health hx (including hx of kidney stones approx 2 years ago), FHR 150's per doppler, pt unable to void, vs, other assessment findings. Orders rec'd for straight cath ua, cbc, cmp. No further monitoring necessary at this time.
--- NOTE | 2018-11-03 16:40 | NUR ---
Pt with episode of emesis. 300ml dark liquid noted. Pt apologizes and states "it was chicken parmesan." Pt incontinent in bed during episode. Dark, possibly blood-tinged urine noted on pad. Pericare performed and pad changed. Will wait to perform straight cath.
--- NOTE | 2018-11-03 16:44 | NUR ---
LAB NOTIFIED OF NEED TO DRAW BLOOD.
--- NOTE | 2018-11-03 16:53 | NUR ---
Lab at bedside
--- NOTE | 2018-11-03 17:00 | NUR ---
Straight cath performed under sterile technique. Pt tolerates procedure well. Specimen to lab.
[2018-11-03 17:07] LABS: BASOPHILS % (AUTO) 0 % (0-10); EOSINOPHILS # (AUTO) 0.1 10^3/uL (0.0-0.3); EOSINOPHILS % (AUTO) 1 % (0-10); HEMATOCRIT 37 % (35-52); HEMOGLOBIN 13.1 G/DL (11.5-16.0); LYMPHOCYTES # (AUTO) 2.5 X 10^3 (1.0-4.0); LYMPHOCYTES % (AUTO) 17 % (12-44); MEAN CORPUSCULAR HEMOGLOBIN 31 PG (25-34); MEAN CORPUSCULAR HGB CONC 35 G/DL (32-36); MEAN CORPUSCULAR VOLUME 89 FL (80-99); MEAN PLATELET VOLUME 9.5 FL (7.4-10.4); MONOCYTES % (AUTO) 7 % (0-12); NEUTROPHILS # (AUTO) 11.3 X 10^3 (1.8-7.8); NEUTROPHILS % (AUTO) 76 % (42-75); PLATELET COUNT 269 10^3/uL (130-400); RED CELL DISTRIBUTION WIDTH 13.3 % (10.0-14.5)
[2018-11-03] MEDS ORDERED: PREN1TAB79 PO (17:10)
[2018-11-03 17:19] LABS: CLARITY,URINE VERY CLOUDY; COLOR,URINE AMBER; GLUCOSE, URINE (UA) NEGATIVE (NEGATIVE); KETONES,URINE 1+ (NEGATIVE); LEUKOCYTE ESTERASE ,URINE 1+ (NEGATIVE); NITRITE,URINE NEGATIVE (NEGATIVE); PH,URINE 5 (5-9); PROTEIN,URINE 2+ (NEGATIVE); UROBILINOGEN,URINE 1 MG/DL (NORMAL)
[2018-11-03 17:25] LABS: ALANINE AMINOTRANSFERASE 26 U/L (0-55); ALBUMIN 3.5 GM/DL (3.2-4.5); ALKALINE PHOSPHATASE 135 U/L (40-136); BILIRUBIN,TOTAL 0.6 MG/DL (0.1-1.0); BUN/CREATININE RATIO 13; CARBON DIOXIDE 20 MMOL/L (21-32); CHLORIDE 106 MMOL/L (98-107); CREATININE SERUM 0.62 MG/DL (0.60-1.30); GFR ESTIMATED > 60; GLUCOSE 86 MG/DL (70-105); SODIUM 137 MMOL/L (135-145); TOTAL PROTEIN 6.9 GM/DL (6.4-8.2)
[2018-11-03 17:45] LABS: LYMPHOCYTES % (MANUAL) 18 %; NEUTROPHILS % (MANUAL) 77 %
[2018-11-03 17:46] LABS: EOSINOPHILS % (MANUAL) 1 %; MONOCYTES % (MANUAL) 4 %; RBC MORPH NORMAL
--- NOTE | 2018-11-03 17:50 | NUR ---
to room to check on pt. pt smiling, talking to family, and voices pain and nausea considerably better. notified pt we are still awaiting urine results and will update dr when available. no needs or concerns voiced at this time.
[2018-11-03 18:08] LABS: RBC,URINE TNTC /HPF
[2018-11-03 18:09] LABS: BACTERIA,URINE TRACE /HPF; BILIRUBIN,URINE 1+ (NEGATIVE)
--- NOTE | 2018-11-03 18:12 | NUR ---
Dr. Mac called and updated on pt condition, request to eat, and lab results reported. Orders for regular diet, if pt continues to feel better and is able to tolerate regular diet, D/C pt home with Macrobid 100mg BID x7 days and follow up with practitioner. Call for further orders if condition changes.
[2018-11-03] MEDS ORDERED: NITR-65 PO (18:20)
--- NOTE | 2018-11-03 18:25 | NUR ---
Macrobid 100mg BID x7days called to [facility] per pt req.
--- NOTE | 2018-11-03 20:00 | NUR ---
D/C instructions given & explained, pt. verbalized understanding & signed, copy of D/C instructions to pt, instructed pt. to call her dr if further problems. Pt. left [facility] ambulatory escorted by SO, to home via private vehicle.
--- NOTE | 2018-11-04 10:08 | Physician Query-Final Dx ---
GHAZALA MCKEON 11/04/18 1008: Clinic Account Progress/Dx Physician Query: Please give diagnosis Date of Service Nov 03, 2018 at 16:06 SAJAN SUH MD 11/04/18 1358: Clinic Account Progress/Dx DIAGNOSIS: Diagnosis FALSE LABOR at 20-6/7 weeks' gestation GHAZALA MCKEON Nov 04, 2018 10:08 SAJAN SUH MD Nov 04, 2018 13:58
== END 2018-11-03 20:00 | disposition home or self-care (01) ==
LOC: LDRP 16:06 → WSo 16:06
PROVIDERS: ATTEND Obstetrics & Gynecology
DX: O99.89 Other specified diseases and conditions complicating pregnancy, childbirth and the puerperium (principal); R10.84 Generalized abdominal pain; Z3A.20 20 weeks gestation of pregnancy
CPT/HCPCS: 36415; 80053; 81000; 85007; 85027; 87088; 99214

== ENCOUNTER → 2021-11-30 | Outpatient (CLI) | payer BC, MEDICAID ==
[~2021-11-30] MED LIST changes: +DICY20TA PO; -DICY20TA10 PO; +LEVO750T PO; -LEVO750T39 PO; +NITR-65 PO; +ONDA-105 PO; -ONDA4TAB10 PO; +PREN1TAB79 PO
--- NOTE | 2021-11-30 16:37 | Diagnostic Imaging Report ---
INDICATION: survey. TECHNIQUE: Multiple real-time grayscale images were obtained over the gravid uterus. COMPARISON: None FINDINGS: There is a single live fetus in breech presentation. heart rate was recorded at 140 bpm. Placenta is anterior. No previa is seen. Amniotic fluid index is 18.6 cm. survey does show the bladder and stomach to be unremarkable. There is a four-chamber heart. There is a three-vessel cord with normal insertion. There is suboptimal imaging of the kidneys as well as the brain and spine anatomy due to maternal body habitus. Biometrical measurements are as follows: Biparietal 4.87 cm, age 20 weeks 6 days. Head circumference 18.69 cm, age 21 weeks 1 days. Abdominal circumference 16.50 cm, age 21 weeks 4 days. Femur length 3.59 cm, age 21 weeks 3 days. Sonographic estimate age: 21 weeks 2 days. Sonographic estimated date of delivery: 04/10/2022. Estimated Weight: 421 gm (+/- 62 gm). LMP percentile: 95%. heart rate: 140 beats per minute. number: 1 of 1. IMPRESSION: Single live IUP measuring 21 weeks 2 days gestational age with estimated date of confinement sonographically 04/10/2022. survey is somewhat limited, as described above. Dictated by: Dictated on workstation # [id number]
== END ==
LOC: RAD 15:15
PROVIDERS: ATTEND Nurse Practitioner Women's Health
DX: Z34.02 Encounter for supervision of normal first pregnancy, second trimester (principal); Z3A.21 21 weeks gestation of pregnancy
CPT/HCPCS: 76805

== ENCOUNTER 2022-03-02 08:05 | Outpatient (CLI) | payer OTHER, MEDICAID ==
[~2022-03-02] VITALS: Ht 160 cm; Wt 141.2 kg
[2022-03-02 08:25] VITALS: BP 118/55
[2022-03-02 08:43] LABS: BILIRUBIN,URINE NEGATIVE (NEGATIVE); CLARITY,URINE CLEAR; COLOR,URINE ORANGE; GLUCOSE, URINE (UA) NEGATIVE (NEGATIVE); KETONES,URINE NEGATIVE (NEGATIVE); LEUKOCYTE ESTERASE ,URINE NEGATIVE (NEGATIVE); NITRITE,URINE NEGATIVE (NEGATIVE); PH,URINE 6.5 (5-9); PROTEIN,URINE NEGATIVE (NEGATIVE)
[2022-03-02 08:58] LABS: BACTERIA,URINE TRACE /HPF; SQUAMOUS EPITHELIAL CELL,UR 0-2 /HPF; WBC,URINE RARE /HPF
[2022-03-02] MEDS ORDERED: D5 LR IV SOLUTION 1,000 ML IV ONE (09:26)
[2022-03-02] MEDS: D5 LR IV SOLUTION 1,000 ML IV SCH ×4 (10:03→22:34)
[2022-03-02 10:08] LABS: BASOPHILS % (AUTO) 0 % (0-10); EOSINOPHILS # (AUTO) 0.3 10^3/uL (0.0-0.3); EOSINOPHILS % (AUTO) 2 % (0-10); HEMATOCRIT 35 % (35-52); HEMOGLOBIN 12.3 g/dL (11.5-16.0); LYMPHOCYTES % (AUTO) 14 % (12-44); MEAN CORPUSCULAR HEMOGLOBIN 32 pg (25-34); MEAN CORPUSCULAR HGB CONC 35 g/dL (32-36); MEAN CORPUSCULAR VOLUME 91 fL (80-99); MEAN PLATELET VOLUME 9.5 fL (9.0-12.2); MONOCYTES # (AUTO) 0.8 10^3/uL (0.0-1.0); MONOCYTES % (AUTO) 6 % (0-12); NEUTROPHILS # (AUTO) 11.4 10^3/uL (1.8-7.8); NEUTROPHILS % (AUTO) 78 % (42-75); PLATELET COUNT 271 10^3/uL (130-400); WHITE BLOOD COUNT 14.7 10^3/uL (4.3-11.0)
[2022-03-02 10:46] LABS: BAND NEUTROPHILS 0 %; BASOPHILS % (MANUAL) 0 %; EOSINOPHILS % (MANUAL) 2 %; LYMPHOCYTES % (MANUAL) 19 %; MONOCYTES % (MANUAL) 4 %; NEUTROPHILS % (MANUAL) 75 %; RBC MORPH NORMAL
--- NOTE | 2022-03-02 12:32 | Diagnostic Imaging Report ---
INDICATION: Premature rupture of membranes. TECHNIQUE: Multiple real-time grayscale images were obtained over the gravid uterus. COMPARISON: None FINDINGS: Cervix measures 4.5 cm in length. The placenta is anteriorly positioned and there is no previa with the inferior tip of the placenta being 13 cm above the internal cervical os. Fetus is in cephalic presentation. A biophysical profile was performed and there is a score of 2/2 for breathing, movements, tone and qualitative amniotic fluid volume. KAREN measures 16 cm. Biometrical measurements are as follows: Biparietal 9.75 cm, age 40 weeks 0 days. Head circumference 35.07 cm, age 40 weeks 6 days. Abdominal circumference 30.41 cm, age 34 weeks 3 days. Femur length 7.18 cm, age 36 weeks 6 days. Sonographic estimate age: 38 weeks 1 days. Sonographic estimated date of delivery: 03/15/2022. Estimated Weight: 2889 gm (+/- 422 gm). LMP percentile: 98%. heart rate: 133 beats per minute. number: 1 of 1. IMPRESSION: 1. Single live intrauterine patency with normal biophysical profile. Dictated by: Dictated on workstation # [id number]
[2022-03-02 12:40] VITALS: BP 128/61
[2022-03-02 15:45] VITALS: BP 112/65
--- NOTE | 2022-03-02 18:24 | History & Physical ---
History and Physical Date Seen by Provider: Mar 02, 2022 Time Seen by Provider: 18:19 This patient is a 26-year-old 3 para 1 1 female who presented this morning with complaint of spontaneous rupture membranes. She reports a large gush of fluid and then a continuous trickle for period of time after. Patient currently is at 33+ weeks gestation. She has had no other problems with this . Her first delivery was by . Patient has care with Dr. Bautista. She was admitted for observation Nitrazine was positive. Patient has been observed through the day and has no further fluid or gushes. She is not glenn. Has a category 1 heart rate tracing. Allergies are none Medications are vitamins Medical social and surgical histories are per the record of Dr. Bautista HEENT exam is normal Neck is supple no lymphadenopathy no thyromegaly Abdomen is morbidly obese nontender Extremities show no clubbing cyanosis. There is Homans' sign. Pelvic exam per the admitting nurse showed a cervix closed. Again nitrazine swab was positive. Repeat exam with sterile speculum for ferning test shows no pooling. Slight amount of slightly white vaginal discharge. Fern test was performed on the discharge from the sterile speculumAnd that was negative Assessment and plan 34 weeks gestation with presentation significant for concerning with rupture membranes. Anticipation would be that she likely will continue to leak however through the day she has not. Repeat evaluation this evening with a fern test was negative. In light of that we will continue observation through the night should she have no further discharge or gushes of fluid and no evidence of spontaneous labor and a normal heart rate tracing we would consider reevaluation and possible discharge home in the morning. Should ROM be confirmed then we would likely initiate antibiotics/steroids/tocolytics/transfer to high risk/NICU care 33 weeks with P PROM Allergies and Home Medications Allergies Coded Allergies: No Known Drug Allergies (Unverified , 09/12/16) Patient Home Medication List Home Medication List Reviewed: No Nitrofurantoin Monohyd/M-Cryst (Macrobid 100 mg Capsule) 100 Mg Capsule, 1 TAB PO BID Prescribed by: CARLITOS HORTON on 11/03/18 182 Vit W-Ca,Fe,FA(<1 mg) ( Vitamins) 1 Each Tablet, 1 EACH PO DAILY, (Reported) Entered as Reported by: DORINA TAO on 11/03/18 171 SAJAN SUH MD Mar 02, 2022 18:24
[2022-03-02 20:30] VITALS: BP 116/68
[2022-03-03 02:58] VITALS: BP 113/53
--- NOTE | 2022-03-03 07:34 | Progress Note ---
Standard Progress Note Progress Notes/Assess & Plan Date Seen by a Provider: Mar 03, 2022 Time Seen by a Provider: 07:33 Progress/Assessment & Plan Patient is without complaint. She has had no further discharge leaking and has had no bleeding. She does feel baby moving. She denies contractions or pain. Vital Signs Date Time Temp Pulse Resp B/P (MAP) Pulse Ox O2 Delivery O2 Flow Rate FiO2 03/03/22 02:58 36.2 93 18 113/53 (73) 98 Room Air 03/02/22 20:30 36.1 91 18 116/68 (84) 98 Room Air 03/02/22 15:45 36.3 90 18 112/65 (81) 98 Room Air 03/02/22 12:40 36.1 98 18 128/61 (83) 98 Room Air 03/02/22 08:25 35.4 96 18 118/55 (76) 96 Room Air 03/02/22 08:25 35.4 96 18 118/55 96 Room Air Vital signs are stable. Patient is afebrile. The abdomen is benign Extremities show no clubbing . There is no Homans' sign. Pelvic exam was deferred Assessment and plan 33 weeks with presentation consistent with P PROM. P PROM I think has been adequately ruled out. We will outpatient discharge home with follow-up ins tructions. She is given strict instructions return to clinic for any signs symptoms indications of labor or of leaking amniotic fluid. Final Diagnosis 33 weeks with P PROM SAJAN SUH MD Mar 03, 2022 07:34
== END 2022-03-03 07:45 | disposition home or self-care (01) ==
LOC: WSo 08:05 → LDRP 08:05 → WSo 03-03 07:45
PROVIDERS: ATTEND Obstetrics & Gynecology
DX: O41.93X0 Disorder of amniotic fluid and membranes, unspecified, third trimester, not applicable or unspecified (principal); Z3A.00 Weeks of gestation of pregnancy not specified
CPT/HCPCS: 36415; 76805; 76819; 81000; 85007; 85027; 86592; 86780; 86850; 86900; 86901; 87081; 87088

== ENCOUNTER → 2022-04-04 | Outpatient (CLI) | payer OTHER, MEDICAID ==
[~2022-04-04] VITALS: Ht 160.2 cm; Wt 141.8 kg
== END ==
LOC: PREOP 05:17
PROVIDERS: ATTEND Obstetrics & Gynecology
DX: Z01.818 Encounter for other preprocedural examination (principal)

== ENCOUNTER 2022-04-10 00:04 | Inpatient (IN) | payer OTHER, MEDICAID ==
[2022-04-10] VITALS (13 sets, daily range): BP systolic 111–137; BP diastolic 59–86
[~2022-04-10] VITALS: Ht 160 cm; Wt 140.5 kg
[2022-04-10] MEDS ORDERED: ceFAZolin INJECTION 2,000 MG in NS (IVPB) 50 ML IV NR (08:00)
[2022-04-10] MEDS ORDERED: FAMOTIDINE 20MG/2ML IV (PEPCID) IV NR (08:00)
[2022-04-10] MEDS: LACTATED RINGERS 1,000 ML IV PRN ×2 (08:00→09:00)
[2022-04-10] MEDS ORDERED: METOCLOPRAMIDE INJ 10 MG/2 ML (REGLAN) IV NR (08:00)
[2022-04-10] MEDS ORDERED: CITRIC ACID/SOB CIT (BICITRA) 30 ML UDC PO NR (08:00)
[2022-04-10 08:13] LABS: BASOPHILS % (AUTO) 0 % (0-10); EOSINOPHILS # (AUTO) 0.2 10^3/uL (0.0-0.3); EOSINOPHILS % (AUTO) 1 % (0-10); HEMATOCRIT 33 % (35-52); HEMOGLOBIN 11.7 g/dL (11.5-16.0); LYMPHOCYTES # (AUTO) 1.9 10^3/uL (1.0-4.0); LYMPHOCYTES % (AUTO) 14 % (12-44); MEAN CORPUSCULAR HEMOGLOBIN 31 pg (25-34); MEAN CORPUSCULAR HGB CONC 35 g/dL (32-36); MEAN CORPUSCULAR VOLUME 89 fL (80-99); MEAN PLATELET VOLUME 9.8 fL (9.0-12.2); MONOCYTES # (AUTO) 1.1 10^3/uL (0.0-1.0); MONOCYTES % (AUTO) 8 % (0-12); NEUTROPHILS # (AUTO) 10.9 10^3/uL (1.8-7.8); NEUTROPHILS % (AUTO) 76 % (42-75); PLATELET COUNT 248 10^3/uL (130-400); WHITE BLOOD COUNT 14.3 10^3/uL (4.3-11.0)
[2022-04-10 08:43] LABS: BAND NEUTROPHILS 1 %; LYMPHOCYTES % (MANUAL) 19 %; MONOCYTES % (MANUAL) 5 %; NEUTROPHILS % (MANUAL) 75 %; RBC MORPH NORMAL
--- NOTE | 2022-04-10 08:48 | History & Physical-OB ---
OB - Chief Complaint & HPI Date/Time Date of Admission: Date of Admission: Apr 10, 2022 at 07:25 Date seen by a Provider: Apr 10, 2022 Time Seen by a Provider: 09:15 Chief Complaint/History OB-Reason for Admission/Chief: Section Hx : 2 Hx Para: 1 Expected Date of Delivery: Apr 17, 2022 Gestational Age in Weeks: 39 Indication for : desires repeat Admission Nurse Assessment Rev: Yes Allergies and Home Medications Allergies Coded Allergies: No Known Drug Allergies (Unverified , 04/04/22) Patient Home Medication List Home Medication List Reviewed: Yes Vit W-Ca,Fe,FA(<1 mg) ( Vitamins) 1 Each Tablet, 1 EACH PO DAILY, (Reported) Entered as Reported by: DORINA TAO on 11/03/18 171 Discontinued Medications Nitrofurantoin Monohyd/M-Cryst (Macrobid 100 mg Capsule) 100 Mg Capsule, 1 TAB PO BID Discontinued Reason: No Longer Taking Prescribed by: CARLITOS HORTON on 11/03/18 182 OB - History Hx of Present Care: Yes Obstetrical Complications: None Medical Complications: None Delivery History Hx Blood Disorders: No Patient Past Medical History BMI 54 Social History/Family History 2nd Hand Smoke Exposure: No Immunizations Influenza Vaccine Up-to-Date: Yes; Up-to-Date First/Initial COVID19 Vaccine: 2020 Second COVID19 Vaccination: 2020 OB - Admission Exam Physical Exam Vitals: Vital Signs 04/10/22 07:37 Temp 36.3 Pulse 108 Resp 18 Pulse Ox 98 O2 Delivery Room Air HEENT: NCAT Heart: Rhythm Normal Lungs: Clear Abdomen: Gravid Extremities: Normal Reflexes: Normal Heart Rate: 130's Accelerations: Accelerations Present Decelerations: No Decelerations Short Term Variability: Present Chcf Variability: Average (6-25) Contractions on Admission: 6-10 Minutes Apart Intensity: Mild Labs Laboratory Tests Test 04/10/22 08:00 Range/Units White Blood Count 14.3 H 4.3-11.0 10^3/uL Red Blood Count 3.77 L 3.80-5.11 10^6/uL Hemoglobin 11.7 11.5-16.0 g/dL Hematocrit 33 L 35-52 % Mean Corpuscular Volume 89 80-99 fL Mean Corpuscular Hemoglobin 31 25-34 pg Mean Corpuscular Hemoglobin Concent 35 32-36 g/dL Red Cell Distribution Width 14.1 10.0-14.5 % Platelet Count 248 130-400 10^3/uL Mean Platelet Volume 9.8 9.0-12.2 fL Immature Granulocyte % (Auto) 1 % Neutrophils (%) (Auto) 76 H 42-75 % Lymphocytes (%) (Auto) 14 12-44 % Monocytes (%) (Auto) 8 0-12 % Eosinophils (%) (Auto) 1 0-10 % Basophils (%) (Auto) 0 0-10 % Neutrophils # (Auto) 10.9 H 1.8-7.8 10^3/uL Lymphocytes # (Auto) 1.9 1.0-4.0 10^3/uL Monocytes # (Auto) 1.1 H 0.0-1.0 10^3/uL Eosinophils # (Auto) 0.2 0.0-0.3 10^3/uL Basophils # (Auto) 0.0 0.0-0.1 10^3/uL Immature Granulocyte # (Auto) 0.1 0.0-0.1 10^3/uL OB - Assessment/Plan/Diagnosis Assessment Assessment: section Admission Dx 26 yo @ 39 weeks Previous Admission Status: Inpatient Order (span 2 midnights) Reason for Inpatient Admission: RLTCS Plan Plan: Section TONIE VIDES DO Apr 10, 2022 08:48
--- NOTE | 2022-04-10 08:54 | Discharge Inst-Women's Service ---
Discharge Inst-Women's Serv Depart Medication/Instructions New, Converted or Re-Newed RX: Transmitted to Pharmacy Final Diagnosis POD 2 RLTCS Problems Reviewed?: Yes Consults/Follow Up Additional Follow Up: Yes Orders/Referrals Dr. Bautista in 7-10 days and in 6 weeks Activity Activity: Activity as Tolerated NO SMOKING: NO SMOKING Nothing Inside Vagina: No Douching, No [employer], No Tampons Diet Discharge Diet: No Restrictions Symptoms to Report to : Bleeding Excessive, Pain Increased, Fever Over 101 Degrees F, Vaginal Bleeding Increase, Questions/Concerns For Any Problems or Questions: Contact Your Physician Skin/Wound Care Infection Signs and Symptoms: Increased Redness, Foul Odor of Wound, Increased Drainage, Skin Itchy or Has a Rash, Increased Swelling, Temperature Above 101 F Operative Area Clean and Dry: Keep Incision Clean/Dry Stitches/Batool/Dermabond: Dermabond, Care of Stitches Bathing Instructions: TONIE Sheriff DO Apr 10, 2022 08:54
[2022-04-10] MEDS ORDERED: ACHD5005 PO (08:55)
[2022-04-10] MEDS ORDERED: DOCU100C37 PO (08:55)
[2022-04-10] MEDS ORDERED: IBUP-844 PO (08:55)
[2022-04-10] MEDS ORDERED: MEASLES,MUMPS,RUBELLA 1 EA INJ SC SCH (09:00)
[2022-04-10] MEDS ORDERED: TETANUS,DIPTH,PERTUSS P/F (BOOSTRIX) 0.5 ML VIAL IM SCH (09:00)
[2022-04-10] MEDS ORDERED: ONDANSETRON 4 MG/2 ML (SDV) Z0FRAN IVP PRN (09:00)
[2022-04-10] MEDS ORDERED: NALOXONE 0.4 MG/ML 1 ML (NARCAN) VIAL IV PRN (09:00)
[2022-04-10 10:04] LABS: BILIRUBIN,URINE 1+ (NEGATIVE); CLARITY,URINE CLEAR; COLOR,URINE YELLOW; GLUCOSE, URINE (UA) NEGATIVE (NEGATIVE); KETONES,URINE NEGATIVE (NEGATIVE); LEUKOCYTE ESTERASE ,URINE TRACE (NEGATIVE); NITRITE,URINE NEGATIVE (NEGATIVE); PH,URINE 6.5 (5-9); PROTEIN,URINE TRACE (NEGATIVE)
[2022-04-10] MEDS ORDERED: OXYTOCIN PRE-MIX DRIP 1,000 ML IV ONE (10:33)
[2022-04-10] MEDS ORDERED: fentaNYL INJ 100 MCG/2 ML AMP ONE (10:33)
[2022-04-10 10:34] LABS: BACTERIA,URINE FEW /HPF; RBC,URINE 0-2 /HPF; SQUAMOUS EPITHELIAL CELL,UR 25-50 /HPF
[2022-04-10] MEDS ORDERED: PHENYLEPHRINE 100 MCG/ML 10 ML (ANESTHESIA) SYR ONE (10:55)
[2022-04-10] MEDS ORDERED: ONDANSETRON 4 MG/2 ML (SDV) Z0FRAN ONE (11:23)
[2022-04-10] MEDS ORDERED: BUPIVACAINE 0.5% 30 ML (SENSORCAINE) VIAL ONE (11:33)
[2022-04-10] MEDS: KETOROLAC 30 MG/ML VIAL IV SCH ×3 (12:06→23:44)
[2022-04-10] MEDS: OXYTOCIN PRE-MIX DRIP 500 ML IV SCH ×2 (13:13→17:16)
[2022-04-10] MEDS: HYDROcodone/APAP 5 MG/325 MG (LORTAB) TAB PO PRN ×2 (14:24→20:44)
[2022-04-10] MEDS: guaiFENesin (MUCINEX) 600 MG TAB PO SCH ×2 (15:13→20:42)
[2022-04-10] MEDS: DOCUSATE SODIUM 100 MG (COLACE) CAP PO SCH ×2 (19:35→20:42)
--- NOTE | 2022-04-10 20:41 | OPERATIVE REPORT ---
PREOPERATIVE DIAGNOSES: 1. A 26-year-old at 39 weeks gestation. 2. Previous section. POSTOPERATIVE DIAGNOSES: 1. A 26-year-old at 39 weeks gestation. 2. Previous section. PROCEDURE: Repeat low transverse section. SURGEON: Dr. Yadiel Vides. INTERACTIVE MARKETING STRATEGIST: Yanira Huber, was necessary for manipulation and traction throughout the procedure. ANESTHESIA: Spinal. ESTIMATED BLOOD LOSS: 600 mL URINE OUTPUT: 125 mL clear at the end of the procedure. FLUIDS: 1500 mL lactated Ringer's solution. FINDINGS: Live male , weight pending, Apgars of 8 and 9. Grossly normal appearing uterus, bilateral fallopian tubes and ovaries. SPECIMEN SENT: Right ovarian cyst wall. INDICATIONS FOR PROCEDURE: This 26-year-old female is the patient who had sought care in my office. Her was uncomplicated with the exception of need for repeat . Risks of the procedure were discussed with the patient in detail and her preoperative and antepartum care. After all of her questions were answered, consent was obtained in preoperative area. The patient was taken to the operating room. OPERATIVE REPORT IN DETAIL: Once in the operating room, spinal anesthesia was administered and found to be adequate. She was placed in supine position with a leftward tilt, prepped and draped in normal sterile fashion. Timeout was performed. Anesthesia tested. I then make a Pfannenstiel skin incision with a knife and carried down to the underlying fascia using Bovie cautery and fascial incision extended laterally using Bovie cautery. Superior aspect of fascial incision was then grasped with Wilber clamps, tented up and dissected off the underlying rectus muscles. The inferior aspect of the fascial incision was then grasped with Wilber clamps, tented up and dissected off the underlying rectus muscles. The rectus muscles were dissected down to the midline using sharp dissection, which exposed the peritoneum, which entered bluntly and extended using blunt traction. An Darshan ring retractor was placed in the peritoneal incision which offers excellent lateral sidewall retraction. I identified the lower uterine segment, was found to be thinned out and make a low transverse incision through the vesicouterine peritoneum, bluntly dissected this off the lower uterine segment, creating a bladder flap. We then proceeded with myotomy until membranes were visualized, at which point I extended the uterine incision laterally and superiorly using bandage scissors. Amniotomy was performed. In the process of doing this, clear fluid was noted. The infant was found in vertex presentation. With gentle fundal pressure, the infant's head was elevated up to the incision. There was difficulty delivering due to the patient's body habitus. I then placed a Kiwi suction device down the flexion point of the mid sagittal suture line and the presenting part and apply 400 mmHg of suction using the handpiece and I am able to deliver the head through the incision using suction as traction. I then removed the suction immediately and delivered anterior and posterior shoulders and bulb suctioned the nares and oropharynx. Once this was done, the infant was then brought to the operative field where the cord was doubly clamped and cut. The was handed off to waiting nurses in attendance. Cord blood was collected. Three-vessel cord intact placenta was delivered spontaneously. Thereafter, IV Pitocin initiated to facilitate uterine contraction. Uterine fundus confirmed by manual massage. The uterus was then exteriorized and cleared of all major clots and debris. I then proceeded with closing the uterine incision using 0 Vicryl suture in a running locked fashion. A second layer of imbricating Monocryl was placed. Excellent hemostasis was noted after doing this. I then identified bilateral tubes and ovaries, which appeared to be normal; however, the right ovary does have a large cyst on it. I go ahead and incise this with a Bovie cautery and take a sample and remove large portion of the cyst using Bovie cautery. There was no active bleeding noted from the cyst wall after I do this. The uterus and bilateral tubes and ovaries were then placed back within the pelvis where the pelvis was then copiously irrigated using normal saline. There was no active bleeding noted from any of my dissection planes. I placed Interceed antiadhesive over my low transverse incision. I removed the Darshan ring retractor and then proceeded with closing the peritoneum using 3-0 Vicryl suture in a running fashion. The rectus muscles were reapproximated using 3-0 Vicryl suture in interrupted fashion. The fascia was reapproximated using 0 Vicryl suture in a running fashion. The subcutaneous tissue was reapproximated using 3-0 plain interrupted subcutaneous stitch and skin reapproximated using 4-0 Monocryl running subcuticular. Dermabond was applied to incision and sterile dressings with adhesive white tape. The patient tolerated the procedure well and was taken to recovery area in stable condition. Lap and sponge counts were correct at the end of the procedure. Instrument count was correct as well. Job ID: [id number] DocumentID: [id number] Dictated Date: 04/10/2022 11:47:06 Wing Coverer Date: 04/10/2022 20:40:00 Dictated By: YADIEL VIDES DO
[2022-04-10] MEDS: CATHETER FLUSH 10 ML SYR IV SCH ×2 (21:32→23:44)
[2022-04-11] MEDS: HYDROcodone/APAP 5 MG/325 MG (LORTAB) TAB PO PRN ×4 (03:29→21:37)
[2022-04-11 03:30] VITALS: BP 116/56
[2022-04-11 05:42] LABS: BASOPHILS % (AUTO) 0 % (0-10); EOSINOPHILS # (AUTO) 0.1 10^3/uL (0.0-0.3); EOSINOPHILS % (AUTO) 1 % (0-10); HEMATOCRIT 29 % (35-52); HEMOGLOBIN 9.8 g/dL (11.5-16.0); LYMPHOCYTES # (AUTO) 1.9 10^3/uL (1.0-4.0); LYMPHOCYTES % (AUTO) 14 % (12-44); MEAN CORPUSCULAR HEMOGLOBIN 31 pg (25-34); MEAN CORPUSCULAR HGB CONC 34 g/dL (32-36); MEAN CORPUSCULAR VOLUME 90 fL (80-99); MEAN PLATELET VOLUME 9.9 fL (9.0-12.2); MONOCYTES % (AUTO) 7 % (0-12); NEUTROPHILS # (AUTO) 11.2 10^3/uL (1.8-7.8); NEUTROPHILS % (AUTO) 78 % (42-75); PLATELET COUNT 225 10^3/uL (130-400); WHITE BLOOD COUNT 14.3 10^3/uL (4.3-11.0)
[2022-04-11] MEDS: CATHETER FLUSH 10 ML SYR IV SCH (05:47)
[2022-04-11] MEDS: KETOROLAC 30 MG/ML VIAL IV SCH (05:47)
[2022-04-11 08:20] VITALS: BP 115/57
[2022-04-11] MEDS: DOCUSATE SODIUM 100 MG (COLACE) CAP PO SCH ×2 (08:32→20:17)
[2022-04-11] MEDS: guaiFENesin (MUCINEX) 600 MG TAB PO SCH ×2 (08:32→20:17)
--- NOTE | 2022-04-11 09:56 | Anesthesia-Regional Post-Op ---
Regional Patient Condition Mental Status: Alert, Oriented x3 Circulation: Same as Pre-Op Headache: Absent Sensation: Full Recovery Motor Block: Absent Post Op Complications Complications None Follow Up Care/Instructions Patient Instructions None needed. Anesthesia/Patient Condition Patient is doing well, no complaints, stable vital signs, no apparent adverse anesthesia problems. No complications reported per nursing. CONNER LITTLE CRNA Apr 11, 2022 09:56
[2022-04-11] MEDS: IBUPROFEN 600 MG (MOTRIN) TAB PO SCH ×3 (11:59→23:57)
[2022-04-11 12:00] VITALS: BP 110/55
--- NOTE | 2022-04-11 13:06 | Postpartum Progress Note ---
Note Note Day # 1 Subjective: Patient is without complaints. Ambulating, voiding. Tolerating a regular diet without nausea or vomiting. Normal lochia. Pain is well controlled with oral pain medications. Physical Exam: General - Alert and oriented, no apparent distress Abdomen - Soft, appropriately tender to palpation, non-distended, fundus firm at umbilicus; incision c/d/i Extremities - no edema, negative Shirley's bilaterally Assessment: Post- day # 1, status post RLTCS Recovering well, hemodynamically stable Acute blood loss anemia Plan: Routine care. Encourage breast feeding. Encourage ambulation. Ferrous sulfate supplementation. Plan for discharge tomorrow Vitals - Labs Vital Signs - I&O Vital Signs Date Time Temp Pulse Resp B/P (MAP) Pulse Ox O2 Delivery O2 Flow Rate FiO2 04/11/22 08:20 36.2 92 16 115/57 (76) 96 Room Air 04/11/22 03:30 36.6 88 16 116/56 (76) 100 Room Air 04/10/22 23:45 36.4 107 20 116/63 (80) 95 Room Air 04/10/22 19:40 36.4 98 16 115/59 (77) 95 Room Air 04/10/22 16:15 36.7 93 18 124/60 (81) 98 Room Air I & O 04/11/22 07:00 Intake Total 1550 ml Output Total 250 ml Balance 1300 ml Labs Laboratory Tests 04/11/22 05:11: White Blood Count 14.3H, Red Blood Count 3.17L, Hemoglobin 9.8L, Hematocrit 29L, Mean Corpuscular Volume 90, Mean Corpuscular Hemoglobin 31, Mean Corpuscular Hemoglobin Concent 34, Red Cell Distribution Width 14.2, Platelet Count 225, Mean Platelet Volume 9.9, Immature Granulocyte % (Auto) 1, Neutrophils (%) (Auto) 78H, Lymphocytes (%) (Auto) 14, Monocytes (%) (Auto) 7, Eosinophils (%) (Auto) 1, Basophils (%) (Auto) 0, Neutrophils # (Auto) 11.2H, Lymphocytes # (Auto) 1.9, Monocytes # (Auto) 1.0, Eosinophils # (Auto) 0.1, Basophils # (Auto) 0.0, Immature Granulocyte # (Auto) 0.1 BINDU ROPER COMMODITY MANAGEMENT SPECIALIST Apr 11, 2022 13:06
[2022-04-11 18:30] VITALS: BP 116/60
[2022-04-11 23:56] VITALS: BP 117/55
[2022-04-12] MEDS: IBUPROFEN 600 MG (MOTRIN) TAB PO SCH ×2 (05:54→12:37)
[2022-04-12 05:57] VITALS: BP 136/65
[2022-04-12 08:00] VITALS: BP 123/63
[2022-04-12] MEDS: guaiFENesin (MUCINEX) 600 MG TAB PO SCH (09:05)
[2022-04-12] MEDS: DOCUSATE SODIUM 100 MG (COLACE) CAP PO SCH (09:05)
[2022-04-12] MEDS: HYDROcodone/APAP 5 MG/325 MG (LORTAB) TAB PO PRN (09:06)
--- NOTE | 2022-04-12 10:02 | Postpartum Progress Note ---
Note Note Day #2 Subjective: Patient is without complaints. Ambulating, voiding. Tolerating a regular diet without nausea or vomiting. Normal lochia. Pain is well controlled with oral pain medications. Physical Exam: General - Alert and oriented, no apparent distress Abdomen - Soft, appropriately tender to palpation, non-distended, fundus firm at umbilicus; incision c/d/i Extremities - no edema, negative Shirley's bilaterally Assessment: Post- day # 2, status post RLTCS Recovering well, hemodynamically stable Acute blood loss anemia Plan: Routine care. Encourage breast feeding. Encourage ambulation. Ferrous sulfate supplementation. Plan for discharge today Vitals - Labs Vital Signs - I&O Vital Signs Date Time Temp Pulse Resp B/P (MAP) Pulse Ox O2 Delivery O2 Flow Rate FiO2 04/12/22 05:57 36.5 98 18 136/65 (88) 98 Room Air 04/11/22 23:56 36.2 87 16 117/55 (75) 97 Room Air 04/11/22 18:30 36.7 86 18 116/60 (78) 97 Room Air 04/11/22 12:00 36.5 99 16 110/55 (73) 97 Room Air BINDU ROPER APRN Apr 12, 2022 10:02
[2022-04-12 12:00] VITALS: BP 122/64
[2022-04-12 14:20] VITALS: BP 122/64
== END 2022-04-12 14:20 | disposition home or self-care (01) | DRG 787 ==
LOC: LDRP 07:25
PROVIDERS: ADMIT Obstetrics & Gynecology; ATTEND Obstetrics & Gynecology
PROC: 10D00Z1 Extraction of Products of Conception, Low, Open Approach (ICD-10-PCS; principal; 2022-04-10 10:43)
DX: O34.211 Maternal care for low transverse scar from previous cesarean delivery (principal); D62 Acute posthemorrhagic anemia; O90.81 Anemia of the puerperium; O34.83 Maternal care for other abnormalities of pelvic organs, third trimester; N83.201 Unspecified ovarian cyst, right side; Z3A.39 39 weeks gestation of pregnancy; Z37.0 Single live birth
CPT/HCPCS: 36415; 81000; 83033; 85007; 85025; 85027; 86850; 86900; 86901

== ENCOUNTER → 2022-11-02 | Outpatient (CLI) | payer MEDICAID, OTHER ==
[~2022-11-02] MED LIST changes: +ACHD5005 PO; +DOCU100C37 PO; +IBUP-844 PO
--- NOTE | 2022-11-02 14:21 | Diagnostic Imaging Report ---
INDICATION: Bilateral breast lumps. Sonographic interrogation of both the right left breast was performed at the areas of lumps. This corresponds to the 3:00 location of the right breast. No sonographic abnormality of the medial right breast is identified. No solid or cystic masses are identified. Left breast lumps correspond to the 5, 9 and 12:00 locations. The 5 and 12:00 locations are unremarkable. No discrete mass is seen. The 9:00 location, 7 to 8 cm from the nipple does show an ovoid echogenic structure approximately 6 mm x 3 mm x 7 mm, perhaps a small lipoma. No concerning sonographic abnormalities are seen. IMPRESSION: BI-RADS Category 1 No concerning sonographic findings are identified in either breast. There may be a subcentimeter lipoma versus normal breast tissue at the 9:00 location left breast. Dictated by: Dictated on workstation # [id number]
== END ==
LOC: RAD 12:15
PROVIDERS: ATTEND Nurse Practitioner Women's Health
DX: N64.4 Mastodynia (principal)
CPT/HCPCS: 76642